=== PATIENT | female | born 1955 | race Caucasian/White ===

== ENCOUNTER → 2016-11-27 | Outpatient (CLI) | payer OTHER ==
[2016-11-27 12:36] LABS: ALT 55 U/L (9-52); AST 53 U/L (14-36); Cholesterol 259 mg/dL (<200); Triglycerides 91 mg/dL (<150)
[2016-11-27 12:50] LABS: HDL Cholesterol 145 mg/dL (40-60)
== END | disposition home or self-care (01) ==
LOC: LABWHC1 10:44
PROVIDERS: ATTEND Internal Medicine Interventional Cardiology
DX: E78.2 Mixed hyperlipidemia (principal)
CPT/HCPCS: 36415; 80061; 84450; 84460

== ENCOUNTER → 2017-02-15 | Outpatient (CLI) | payer OTHER ==
[2017-02-15 13:44] LABS: Basophils % (A) 1 %; CH 33.2; CHCM 33.1; Eosinophils # (A) 0.2 k/uL (0-0.7); Eosinophils % (A) 2 %; HCT 42.2 % (34.0-46.0); HDW 2.15; HGB 14.3 gm/dL (11.4-16.0); Luc # (Auto) 0.17; Luc % (Auto) 3; Lymphocytes # (A) 1.6 k/uL (1.0-4.8); Lymphocytes % (A) 25 %; MCH 34.2 pg (25.0-35.0); MCHC 33.9 g/dL (31.0-37.0); MCV 100.8 fL (80.0-100.0); Mean Platelet Volume 7.2; Monocytes # (A) 0.4 k/uL (0-1.0); Monocytes % (A) 6 %; Neutrophils % (A) 63 %; RBC 4.18 m/uL (3.80-5.40); RDW 12.6 % (11.5-15.5); WBC 6.3 k/uL (3.8-10.6); WBC (Perox) 6.07
[2017-02-15 13:51] LABS: ALT 53 U/L (9-52); AST 56 U/L (14-36); Alkaline Phosphatase 69 U/L (38-126); Anion Gap 11 mmol/L; Blood Urea Nitrogen 12 mg/dL (7-17); Calcium 10.8 mg/dL (8.4-10.2); Carbon Dioxide 28 mmol/L (22-30); Chloride 102 mmol/L (98-107); Glucose 102 mg/dL (74-99); Non-African American GFR(MDRD) >60 (>60 ml/min/1.73 sqM); Potassium 4.7 mmol/L (3.5-5.1); Sodium 141 mmol/L (137-145); Total Bilirubin 0.9 mg/dL (0.2-1.3); Total Protein 8.2 g/dL (6.3-8.2)
[2017-02-15 14:39] LABS: Hepatitis C Virus IgG Ab Negative (Negative); Hepatitis C Virus IgG Index 0.02
== END | disposition home or self-care (01) ==
LOC: LABWHC1 12:56
PROVIDERS: ATTEND Family Medicine
DX: Z00.00 Encounter for general adult medical examination without abnormal findings (principal); I26.99 Other pulmonary embolism without acute cor pulmonale; E72.11 Homocystinuria; R03.0 Elevated blood-pressure reading, without diagnosis of hypertension; R74.8 Abnormal levels of other serum enzymes
CPT/HCPCS: 36415; 80053; 83090; 85025; 86803

== ENCOUNTER → 2017-12-07 | Outpatient (CLI) | payer OTHER ==
[2017-12-07 11:19] LABS: ALT 54 U/L (9-52); AST 59 U/L (14-36); Albumin 4.7 g/dL (3.5-5.0); Alkaline Phosphatase 60 U/L (38-126); Anion Gap 15 mmol/L; Blood Urea Nitrogen 13 mg/dL (7-17); Calcium 10.2 mg/dL (8.4-10.2); Carbon Dioxide 28 mmol/L (22-30); Chloride 98 mmol/L (98-107); Cholesterol 227 mg/dL (<200); Glucose 91 mg/dL (74-99); Potassium 5.2 mmol/L (3.5-5.1); Sodium 141 mmol/L (137-145); Total Bilirubin 0.7 mg/dL (0.2-1.3); Total Protein 7.6 g/dL (6.3-8.2); Triglycerides 50 mg/dL (<150)
[2017-12-07 11:26] LABS: LDL Cholesterol,Calculated 91 mg/dL (0-99)
[2017-12-07 11:39] LABS: HDL Cholesterol 126 mg/dL (40-60)
== END | disposition home or self-care (01) ==
LOC: LABWHC1 09:59
PROVIDERS: ATTEND Internal Medicine Interventional Cardiology
DX: E78.2 Mixed hyperlipidemia (principal)
CPT/HCPCS: 36415; 80053; 80061

== ENCOUNTER 2018-02-05 18:07 | Emergency (ER) | payer OTHER ==
[2018-02-05 18:31] VITALS: BP 155/77; PULSE 85; RESP 18; TEMP 98.2
[2018-02-05] MEDS ORDERED: predniSONE 50 MG TAB PO STA (19:30)
[2018-02-05] MEDS ORDERED: CEPHALEXIN 500MG STARTER PACK 4 CAP BTL PO STA (19:30)
--- NOTE | 2018-02-05 19:30 | ED ---
Skin/Abscess/FB HPI - General Chief complaint: Skin/Abscess/Foreign Body Stated complaint: Bug Bite Time Seen by Provider: 02/05/18 18:51 Source: patient, RN notes reviewed, old records reviewed Mode of arrival: ambulatory Limitations: no limitations - History of Present Illness Initial comments: Patient's a 62-year-old female chief complaint of right hand pain and swelling. She reports that yesterday evening she sitting outside and believes that she got bit by some type of bug. She reports that over the past day she's had increased swelling. She's been taking Benadryl and apply ice over the hand. She denies any redness or streaking up the arm. She reports that she is no pain with range of motion but said the stretching of her skin. No falls or trauma to the hand. Denies any other symptoms at this time. She does report she has other bug bites on her legs that those are not swollen as bad as this. - Related Data Home Medications Medication Instructions Recorded Confirmed EPINEPHrine (Auto Inject) [Epipen] 1 each SQ DIRECTED PRN 01/03/16 02/05/18 Folic Acid 1 mg PO HS 01/03/16 02/05/18 Rivaroxaban [Xarelto] 20 mg PO HS 01/03/16 02/05/18 Rosuvastatin [Crestor] 1 tab PO DAILY 01/03/16 02/05/18 Previous Rx's Medication Instructions Recorded Acetaminophen-Codeine 300-30mg 15 tab PO Q6H PRN 3 Days tablet 01/03/16 [Tylenol #3] Cephalexin [Keflex] 500 mg PO Q8HR #21 cap 02/05/18 predniSONE 10 mg PO DAILY #15 tab 02/05/18 Allergies Allergy/AdvReac Type Severity Reaction Status Date / Time amlodipine besylate Allergy Swelling Verified 02/05/18 18:29 [From [facility]] clindamycin Allergy Unknown Verified 02/05/18 18:29 Childhood venom-honey bee Allergy Anaphylaxis Verified 02/05/18 18:29 [bee venom (honey bee)] Review of Systems ROS Statement: Those systems with pertinent positive or pertinent negative responses have been documented in the HPI. ROS Other: All systems not noted in ROS Statement are negative. Past Medical History Past Medical History: Chest Pain / Angina, Heart Failure, Hyperlipidemia, Hypertension, Pulmonary Embolus (PE) History of Any Multi-Drug Resistant Organisms: None Reported Past Surgical History: No Surgical Hx Reported Past Psychological History: No Psychological Hx Reported Smoking Status: Former smoker Past Alcohol Use History: Daily Past Drug Use History: None Reported General Exam - General Exam Comments Initial Comments: 62-year-old female. Alert and oriented. No acute distress. Limitations: no limitations General appearance: alert, in no apparent distress Head exam: Present: atraumatic, normocephalic, normal inspection Eye exam: Present: normal appearance, PERRL, EOMI. Absent: scleral icterus, conjunctival injection, periorbital swelling ENT exam: Present: normal exam, mucous membranes moist Neck exam: Present: normal inspection. Absent: tenderness, meningismus, lymphadenopathy Respiratory exam: Present: normal lung sounds bilaterally. Absent: respiratory distress, wheezes, rales, rhonchi, stridor Cardiovascular Exam: Present: regular rate GI/Abdominal exam: Present: soft, normal bowel sounds. Absent: distended, tenderness, guarding, rebound, rigid Extremities exam: Present: normal inspection, full ROM, normal capillary refill. Absent: tenderness, pedal edema, joint swelling, calf tenderness Right Elbow exam: Present: normal inspection, full ROM Forearm Wrist exam: Present: normal inspection, full ROM Hand Wrist exam: Present: full ROM, tenderness, swelling (She has some swelling in 3 areas of bug bites over the knuckles. Some erythema noted.). Absent: normal inspection Neuro motor exam: Present: wrist extension intact, thumb opposition intact, thumb IP flexion intact, thumb adduction intact, fingers 2-5 abduction intact Vascular: Present: normal capillary refill Back exam: Present: normal inspection Neurological exam: Present: alert, oriented X3, CN II-XII intact Psychiatric exam: Present: normal affect, normal mood Skin exam: Present: warm, dry, intact, normal color. Absent: rash Course Vital Signs 02/05/18 18:29 Temperature 98.2 F Pulse Rate 85 Respiratory 18 Rate Blood Pressure 155/77 O2 Sat by Pulse 98 Oximetry Medical Decision Making - Medical Decision Making 62-year-old female presents with a swelling and itching to the right hand. She was bit by some type of insect yesterday evening. She has some bites on her legs as well. This time she does have some mild erythema and swelling over the dorsum of her hand. No rings. She is full range of motion of fingers. X-ray of the hand was reviewed and unremarkable. At this time I'll treat the Patient for ALLERGIC reaction put the Patient on steroids and also will cover for any developing cellulitis with Keflex. I discussed appropriate follow-up with primary care provider and return parameters were discussed. Disposition Clinical Impression: Allergic reaction to insect bite, Swelling of right hand Disposition: HOME SELF-CARE Condition: Good Instructions: General Allergic Reaction (ED) Additional Instructions: Patient advised to continue Benadryl and ice packs over the hand. Take the steroids and antibiotics as prescribed. If The area of redness or swelling worsens return to emergency department. Follow up with PCP in the next 1-2 days. Prescriptions: Cephalexin [Keflex] 500 mg PO Q8HR #21 cap predniSONE 10 mg PO DAILY #15 tab Is patient prescribed a controlled substance at d/c from ED?: No When asked, does pt state using other controlled substances?: No If prescribed controlled substance>3 days was MAPS reviewed?: No If opioid is for acute pain is fill amount 7 days or less?: No If Rx opioid, was Start Talking consent form obtained?: No Referrals: Ann Marie Barajas MD [Primary Care Provider] - 1-2 days Time of Disposition: 19:31
--- NOTE | 2018-02-05 19:42 | XR ---
Right hand HISTORY: Pain and swelling, insect bite 3 views of the right hand Soft tissue swelling is noted. Arthropathy changes are present. Bone mineralization, joint spaces and alignment are maintained. No periostitis to suggest osteomyelitis. IMPRESSION: Soft tissue swelling. Arthropathy.
== END 2018-02-05 20:06 | disposition home or self-care (01) ==
LOC: EC 18:07
DX: T78.49XA Other allergy, initial encounter (principal); M79.89 Other specified soft tissue disorders; S60.561A Insect bite (nonvenomous) of right hand, initial encounter; S80.861A Insect bite (nonvenomous), right lower leg, initial encounter; S80.862A Insect bite (nonvenomous), left lower leg, initial encounter; E78.5 Hyperlipidemia, unspecified; Z86.711 Personal history of pulmonary embolism; Z87.891 Personal history of nicotine dependence; Z79.01 Long term (current) use of anticoagulants; Z79.899 Other long term (current) drug therapy; Z88.8 Allergy status to other drugs, medicaments and biological substances; Z88.1 Allergy status to other antibiotic agents; Z91.030 Bee allergy status; W57.XXXA Bitten or stung by nonvenomous insect and other nonvenomous arthropods, initial encounter
CPT/HCPCS: 73130; 99283; J7512

== ENCOUNTER → 2018-04-20 | Outpatient (CLI) | payer OTHER ==
[2018-04-20 15:01] LABS: Basophils % (A) 1 %; Eosinophils # (A) 0.1 k/uL (0-0.7); Eosinophils % (A) 2 %; HCT 43.8 % (34.0-46.0); Lymphocytes # (A) 1.8 k/uL (1.0-4.8); Lymphocytes % (A) 25 %; MCHC 32.1 g/dL (31.0-37.0); MCV 99.8 fL (80.0-100.0); Mean Platelet Volume 7.4; Monocytes # (A) 0.4 k/uL (0-1.0); Monocytes % (A) 5 %; Neutrophils # (A) 4.7 k/uL (1.3-7.7); Neutrophils % (A) 66 %; Platelet Count 243 k/uL (150-450); RBC 4.39 m/uL (3.80-5.40); RDW 12.6 % (11.5-15.5); WBC 7.2 k/uL (3.8-10.6)
[2018-04-20 15:20] LABS: ALT 73 U/L (9-52); AST 76 U/L (14-36); Albumin 4.9 g/dL (3.5-5.0); Alkaline Phosphatase 65 U/L (38-126); Anion Gap 13 mmol/L; Blood Urea Nitrogen 15 mg/dL (7-17); Calcium 10.5 mg/dL (8.4-10.2); Carbon Dioxide 28 mmol/L (22-30); Chloride 100 mmol/L (98-107); Glucose 89 mg/dL (74-99); Sodium 141 mmol/L (137-145); Total Bilirubin 0.8 mg/dL (0.2-1.3); Total Protein 8.3 g/dL (6.3-8.2)
[2018-04-20 15:34] LABS: T4, Free (Free Thyroxine) 1.01 ng/dL (0.78-2.19)
[2018-04-20 22:23] LABS: Erythrocyte Sedimentation Rate 2 mm/hr (0-20)
[2018-04-21 02:31] LABS: Hemoglobin A1C 5.6 % (4.0-6.0)
== END | disposition home or self-care (01) ==
LOC: LABWHC1 14:07
PROVIDERS: ATTEND Family Medicine
DX: E72.11 Homocystinuria (principal); E05.90 Thyrotoxicosis, unspecified without thyrotoxic crisis or storm; R20.2 Paresthesia of skin; G62.9 Polyneuropathy, unspecified
CPT/HCPCS: 36415; 80053; 82607; 83036; 83090; 83540; 83655; 84439; 84443; 85025; 85652

== ENCOUNTER → 2018-05-25 | Outpatient (CLI) | payer OTHER ==
--- NOTE | 2018-05-25 15:24 | US ---
EXAMINATION TYPE: US thyroid st tissue head/neck DATE OF EXAM: 05/25/2018 COMPARISON: US 2012 CLINICAL HISTORY: E04.1 THYROID NODULE. Follow up thyroid nodules, difficulty swallowing GLAND SIZE: Right Lobe: 4.8 x 1.0 x 1.9 cm Overall Parenchyma: homogenous Left Lobe: 4.9 x 1.2 x 1.4 cm Overall Parenchyma: heterogeneous Isthmus Thickness: 0.3 cm NODULES RIGHT: # of nodules measured on right: 4 1. 0.6 X 0.5 x 0.6 cm hypoechoic cystic nodule at the upper pole with well-defined margins. This no dule is wider than tall and shows no intranodular vascularity. Prior size: 0.9 x 0.5 x 0.8 cm 2. 0.6 X 0.6 x 0.6 cm hypoechoic cystic nodule at the mid pole with well-defined margins. This nodul e is wider than tall and shows no intranodular vascularity. Prior size: 1.0 x 0.5 x 0.9 cm 3. 0.7 X 0.4 x 0.4 cm hypoechoic cystic nodule at the mid pole with well-defined margins. This nodul e is wider than tall and shows no intranodular vascularity. Prior size: no previous 4. 0.7 X 0.4 x 0.6 cm hypoechoic cystic nodule at the lower pole with well-defined margins. This nod ule is wider than tall and shows no intranodular vascularity. Prior size: no previous LEFT: # of nodules measured on left: 0 ISTHMUS: # of nodules measured in the isthmus: 0 Bilateral neck scanned, no evidence of lymphadenopathy. Normal-sized thyroid with multiple small nodules is redemonstrated. A few right-sided cystic subcenti meter nodules are not clearly seen on prior study. IMPRESSION: Multinodular right-sided thyroid without new worrisome greater than 1 cm solid or cystic nodule.
== END | disposition home or self-care (01) ==
LOC: RADUSWWP 14:16
PROVIDERS: ATTEND Family Medicine
DX: E04.2 Nontoxic multinodular goiter (principal)
CPT/HCPCS: 76536

== ENCOUNTER → 2018-06-21 | Outpatient (CLI) | payer OTHER ==
[2018-06-21 16:55] LABS: LDL Cholesterol,Calculated 84.8 mg/dL (0.0-131.0); VLDL Calculation 13.2 mg/dL (5.00-40.00)
== END | disposition home or self-care (01) ==
LOC: LABWHC1 11:01
PROVIDERS: ATTEND Internal Medicine Interventional Cardiology
DX: E78.2 Mixed hyperlipidemia (principal)
CPT/HCPCS: 36415; 80061; 84450; 84460

== ENCOUNTER → 2018-07-14 | Outpatient (CLI) | payer OTHER ==
--- NOTE | 2018-07-15 09:00 | MM ---
Reason for exam: screening (asymptomatic). Last mammogram was performed 1 year ago. History: Patient is postmenopausal and is nulliparous. 2 cyst aspirations of the left breast. Took hormonal contraceptives for 18 years. Physical Findings: A clinical breast exam by your physician is recommended on an annual basis and results should be correlated with mammographic findings. MG 3D Screening Mammo W/Cad Bilateral CC and MLO view(s) were taken. Prior study comparison: July 13, 2017, bilateral MG 3d screening mammo w/cad. June 26, 2016, left breast MG work up mamm w CAD LT. The breast tissue is heterogeneously dense. This may lower the sensitivity of mammography. Focal asymmetry 12 o'clock anterior right breast appears more defined. ASSESSMENT: Incomplete: need additional imaging evaluation, BI-RAD 0 RECOMMENDATION: Special view mammogram and ultrasound of the right breast. [facility] will attempt to contact patient to return for supplemental views and ultrasound.
== END | disposition home or self-care (01) ==
LOC: RADMAMWWP 11:11
PROVIDERS: ATTEND Family Medicine
DX: Z12.31 Encounter for screening mammogram for malignant neoplasm of breast (principal)
CPT/HCPCS: 77063; 77067

== ENCOUNTER 2018-07-19 12:21 | Observation (INO) | payer OTHER ==
--- NOTE | 2018-07-19 12:45 | ED ---
General Adult HPI - General Chief complaint: Chest Pain Stated complaint: Back/chest pain Time Seen by Provider: 07/19/18 12:25 Source: patient, RN notes reviewed Mode of arrival: ambulatory Limitations: no limitations - History of Present Illness Initial comments: This is a 63-year-old female who presents to the emergency department with past medical history significant for pulmonary embolism and she is currently on Xarelto. Patient comes in today because she has had an 10-11 day history of back pain between her shoulder blades. Patient states the pain does feel somewhat like her PE in the past. Patient states over the last day and a half she's had some anterior chest heaviness and she states that this something new. Patient also states she was mild shortness of breath. Patient denies any fever chills per patient denies any lightheadedness dizziness or near syncopal episode. Patient denies any palpitations per patient denies abdominal pain patient denies nausea vomiting diarrhea. Patient denies any leg swelling or calf tenderness. - Related Data Home Medications Medication Instructions Recorded Confirmed EPINEPHrine (Auto Inject) [Epipen] 1 injection SQ ONCE PRN 01/03/16 07/19/18 Folic Acid 1 mg PO HS 01/03/16 07/19/18 Rivaroxaban [Xarelto] 20 mg PO W/SUPPER 01/03/16 07/19/18 Rosuvastatin [Crestor] 10 mg PO DAILY 01/03/16 07/19/18 Acetaminophen Tab [Tylenol Tab] 1,000 mg PO Q6HR PRN 07/19/18 07/19/18 Cartilage/Collagen/Bor/Hyalur 1 tab PO DAILY 07/19/18 07/19/18 [Move Free Ultra Tablet] Ubidecarenone [Co Q-10] 100 mg PO DAILY 07/19/18 07/19/18 Vitamin C/Biotin [Hair, Skin and 1 tab PO DAILY 07/19/18 07/19/18 Nails] Vits A,C,E/Lutein/Minerals 1 tab PO DAILY 07/19/18 07/19/18 [Ocuvite with Lutein Tablet] Allergies Allergy/AdvReac Type Severity Reaction Status Date / Time amlodipine besylate Allergy Swelling Verified 07/19/18 13:41 [From [facility]] clindamycin Allergy Unknown Verified 07/19/18 13:41 Childhood venom-honey bee Allergy Anaphylaxis Verified 07/19/18 13:41 [bee venom (honey bee)] Review of Systems ROS Statement: Those systems with pertinent positive or pertinent negative responses have been documented in the HPI. ROS Other: All systems not noted in ROS Statement are negative. Past Medical History Past Medical History: Chest Pain / Angina, Heart Failure, Hyperlipidemia, Hypertension, Pulmonary Embolus (PE) History of Any Multi-Drug Resistant Organisms: None Reported Past Surgical History: No Surgical Hx Reported Past Psychological History: No Psychological Hx Reported Smoking Status: Former smoker Past Alcohol Use History: Daily Past Drug Use History: None Reported General Exam - General Exam Comments Initial Comments: GENERAL: Patient is well-developed and well-nourished. Patient is nontoxic and well- hydrated and is in mild distress. ENT: Neck is soft and supple. No significant lymphadenopathy is noted. Oropharynx is clear. Moist mucous membranes. Neck has full range of motion without eliciting any pain. EYES: The sclera were anicteric and conjunctiva were pink and moist. Extraocular movements were intact and pupils were equal round and reactive to light. Eyelids were unremarkable. PULMONARY: Unlabored respirations. Good breath sounds bilaterally. No audible rales rhonchi or wheezing was noted. CARDIOVASCULAR: There is a regular rate and rhythm without any murmurs gallops or rubs. ABDOMEN: Soft and nontender with normal bowel sounds. No palpable organomegaly was noted. There is no palpable pulsatile mass. SKIN: Skin is clear with no lesions or rashes and otherwise unremarkable. NEUROLOGIC: Patient is alert and oriented x3. Cranial nerves II through XII are grossly intact. Motor and sensory are also intact. Normal speech, volume and content. Symmetrical smile. MUSCULOSKELETAL: Normal extremities with adequate strength and full range of motion. No lower extremity swelling or edema. No calf tenderness. LYMPHATICS: No significant lymphadenopathy is noted PSYCHIATRIC: Normal psychiatric evaluation. Limitations: no limitations Course Vital Signs 07/19/18 07/19/18 07/19/18 12:25 13:00 13:30 Temperature Pulse Rate 95 80 77 Respiratory 16 21 16 Rate Blood Pressure 144/87 151/95 145/94 O2 Sat by Pulse 98 96 98 Oximetry 07/19/18 14:16 Temperature 98.4 F Pulse Rate Respiratory Rate Blood Pressure O2 Sat by Pulse Oximetry Medical Decision Making - Medical Decision Making EKG shows normal sinus rhythm at 90 bpm SD interval is 162 QRS 70 QT interval 346 QTC is 441. Patient's EKG shows no ST segment elevation or depression or T wave abnormalities are noted. CT shows no PE or aortic aneurysm Patient's chest pain remained yesterday her back pain. Patient was not placed on heparin because she was already on Xarelto. I spoke with Dr. Onofre he agreed to admit the patient admitted the patient continued aspirin and Nitropaste. - Lab Data Result diagrams: 07/19/18 12:49 07/19/18 12:49 Lab Results 07/19/18 07/19/18 07/19/18 Range/Units 12:49 12:49 12:49 WBC 5.2 (3.8-10.6) k/uL RBC 4.38 (3.80-5.40) m/uL Hgb 14.1 (11.4-16.0) gm/dL Hct 42.7 (34.0-46.0) % MCV 97.4 (80.0-100.0) fL MCH 32.3 (25.0-35.0) pg MCHC 33.1 (31.0-37.0) g/dL RDW 12.8 (11.5-15.5) % Plt Count 254 (150-450) k/uL Neutrophils % 63 % Lymphocytes % 25 % Monocytes % 6 % Eosinophils % 3 % Basophils % 0 % Neutrophils # 3.3 (1.3-7.7) k/uL Lymphocytes # 1.3 (1.0-4.8) k/uL Monocytes # 0.3 (0-1.0) k/uL Eosinophils # 0.2 (0-0.7) k/uL Basophils # 0.0 (0-0.2) k/uL PT (9.0-12.0) sec INR (<1.2) APTT (22.0-30.0) sec D-Dimer (<0.60) mg/L FEU Sodium 139 (137-145) mmol/L Potassium 4.1 (3.5-5.1) mmol/L Chloride 102 (98-107) mmol/L Carbon Dioxide 23 (22-30) mmol/L Anion Gap 14 mmol/L BUN 13 (7-17) mg/dL Creatinine 0.57 (0.52-1.04) mg/dL Est GFR (CKD-EPI)AfAm >90 (>60 ml/min/1.73 sqM) Est GFR (CKD-EPI)NonAf >90 (>60 ml/min/1.73 sqM) Glucose 117 H (74-99) mg/dL Calcium 10.7 H (8.4-10.2) mg/dL Magnesium 1.9 (1.6-2.3) mg/dL Total Bilirubin 0.7 (0.2-1.3) mg/dL AST 81 H (14-36) U/L ALT 80 H (9-52) U/L Alkaline Phosphatase 63 (38-126) U/L Total Creatine Kinase 66 (30-135) U/L CK-MB (CK-2) 0.6 (0.0-2.4) ng/mL CK-MB (CK-2) Rel Index 0.9 Troponin I <0.012 (0.000-0.034) ng/mL NT-Pro-B Natriuret Pep pg/mL Total Protein 8.6 H (6.3-8.2) g/dL Albumin 5.3 H (3.5-5.0) g/dL 07/19/18 07/19/18 Range/Units 12:49 12:49 WBC (3.8-10.6) k/uL RBC (3.80-5.40) m/uL Hgb (11.4-16.0) gm/dL Hct (34.0-46.0) % MCV (80.0-100.0) fL MCH (25.0-35.0) pg MCHC (31.0-37.0) g/dL RDW (11.5-15.5) % Plt Count (150-450) k/uL Neutrophils % % Lymphocytes % % Monocytes % % Eosinophils % % Basophils % % Neutrophils # (1.3-7.7) k/uL Lymphocytes # (1.0-4.8) k/uL Monocytes # (0-1.0) k/uL Eosinophils # (0-0.7) k/uL Basophils # (0-0.2) k/uL PT 11.4 (9.0-12.0) sec INR 1.1 (<1.2) APTT 26.0 (22.0-30.0) sec D-Dimer 0.23 (<0.60) mg/L FEU Sodium (137-145) mmol/L Potassium (3.5-5.1) mmol/L Chloride (98-107) mmol/L Carbon Dioxide (22-30) mmol/L Anion Gap mmol/L BUN (7-17) mg/dL Creatinine (0.52-1.04) mg/dL Est GFR (CKD-EPI)AfAm (>60 ml/min/1.73 sqM) Est GFR (CKD-EPI)NonAf (>60 ml/min/1.73 sqM) Glucose (74-99) mg/dL Calcium (8.4-10.2) mg/dL Magnesium (1.6-2.3) mg/dL Total Bilirubin (0.2-1.3) mg/dL AST (14-36) U/L ALT (9-52) U/L Alkaline Phosphatase (38-126) U/L Total Creatine Kinase (30-135) U/L CK-MB (CK-2) (0.0-2.4) ng/mL CK-MB (CK-2) Rel Index Troponin I (0.000-0.034) ng/mL NT-Pro-B Natriuret Pep 71 pg/mL Total Protein (6.3-8.2) g/dL Albumin (3.5-5.0) g/dL Disposition Clinical Impression: Unstable angina pectoris Disposition: ADMITTED IP TO THIS HOSP Referrals: Ann Marie Barajas MD [Primary Care Provider] - 1-2 days Time of Disposition: 14:35
[2018-07-19 13:13] LABS: Basophils % (A) 0 %; Eosinophils # (A) 0.2 k/uL (0-0.7); Eosinophils % (A) 3 %; HCT 42.7 % (34.0-46.0); HGB 14.1 gm/dL (11.4-16.0); Lymphocytes # (A) 1.3 k/uL (1.0-4.8); Lymphocytes % (A) 25 %; MCH 32.3 pg (25.0-35.0); MCHC 33.1 g/dL (31.0-37.0); MCV 97.4 fL (80.0-100.0); Monocytes # (A) 0.3 k/uL (0-1.0); Monocytes % (A) 6 %; Neutrophils # (A) 3.3 k/uL (1.3-7.7); Neutrophils % (A) 63 %; Platelet Count 254 k/uL (150-450); RBC 4.38 m/uL (3.80-5.40); RDW 12.8 % (11.5-15.5); WBC 5.2 k/uL (3.8-10.6)
[2018-07-19 13:27] LABS: ALT 80 U/L (9-52); AST 81 U/L (14-36); Albumin 5.3 g/dL (3.5-5.0); Alkaline Phosphatase 63 U/L (38-126); Anion Gap 14 mmol/L; Blood Urea Nitrogen 13 mg/dL (7-17); Calcium 10.7 mg/dL (8.4-10.2); Carbon Dioxide 23 mmol/L (22-30); Chloride 102 mmol/L (98-107); Glucose 117 mg/dL (74-99); Magnesium 1.9 mg/dL (1.6-2.3); Potassium 4.1 mmol/L (3.5-5.1); Sodium 139 mmol/L (137-145); Total Bilirubin 0.7 mg/dL (0.2-1.3); Total Protein 8.6 g/dL (6.3-8.2)
[2018-07-19 13:28] LABS: D-Dimer 0.23 mg/L FEU (<0.60); INR 1.1 (<1.2); Prothrombin Time 11.4 sec (9.0-12.0)
[2018-07-19 13:33] LABS: Creatine Kinase 66 U/L (30-135)
--- NOTE | 2018-07-19 13:43 | CT ---
CT CHEST FOR PULMONARY EMBOLISM. EXAMINATION TYPE: CT chest angio for PE DATE OF EXAM: 07/19/2018 INDICATION: Chest pain with a history of PE CT DLP: 192.3 mGycm, Automated exposure control for dose reduction was used. CONTRAST: Patient injected with 100 ml mL of Isovue 370. COMPARISON: 07/18/2015 TECHNIQUE: CT of the chest is performed on a spiral scan at 2 mm thick sections. Study is performed with intravenous contrast timed for evaluation for pulmonary embolism. This will limit additional po rtions of the evaluation. 3-D MIP images reconstructed by the technologist are reviewed on the compu ter in the coronal and sagittal planes. FINDINGS: No persistent filling defects are evident to suggest an acute pulmonary embolism. No mediastinal or hilar adenopathy enlarged by CT criteria is evident. The ascending aorta diameter at the level of the main pulmonary artery is 2.8 cm. The main pulmonary artery diameter at the bifur cation is 2.4 cm. Lung windows are clear. Limited CT sections are obtained through the upper abdomen. There is mild fatty infiltration to the l iver. IMPRESSIONS: 1. No acute pulmonary embolism.
[2018-07-19 13:46] LABS: Creatine Kinase MB 0.6 ng/mL (0.0-2.4); Troponin I <0.012 ng/mL (0.000-0.034)
[2018-07-19] MEDS ORDERED: NITROGLYCERIN SL TABS 0.4 MG TAB SUBLINGUAL PRN (14:36)
[2018-07-19] MEDS ORDERED: ASPIRIN 81 MG PO STA (15:19)
[2018-07-19] MEDS ORDERED: METOPROLOL TARTRATE 50 MG TAB PO STA (15:27)
--- NOTE | 2018-07-19 15:36 | P.HPIM ---
History of Present Illness H&P Date: 07/19/18 Chief Complaint: Chest and back pain This is a 63-year-old female with a past medical history of PE, Hypertension, pulmonary embolism and she is currently on anticoagulation with Xarelto that presents to the ED via private vehicle with chief complaint of chest pain and back pain. Patient comes in today because she has had an 10-11 day history of back pain between her shoulder blades starting from her neck. Patient has had this type of pain before but was told by her PCP Dr. Barajas that it was likely arthritis, the patient at this time is a little bit different with regards to duration of her discomfort.. Patient states the pain does feel somewhat like her PE in the past. Patient states over the last day and a half she's had some mild fleeting anterior chest heaviness without any radiation and she states that this something new. Patient also states she was mild shortness of breath. Patient denies any fever chills per patient denies any lightheadedness dizziness or near syncopal episode. Patient denies any palpitations per patient denies abdominal pain patient denies nausea vomiting diarrhea. Patient denies any leg swelling or calf tenderness. In the ER the patient had complaints of workup including a CTA of the chest that was negative for PE, NT proBNP was 70 and troponin was less than 0.012. EKG indicated sinus mechanism . She was recommended for admission to rule out ACS Review of Systems Pertinent positives per HPI all other review of systems otherwise negative Past Medical History Past Medical History: Chest Pain / Angina, Heart Failure, Hyperlipidemia, Hypertension, Pulmonary Embolus (PE) History of Any Multi-Drug Resistant Organisms: None Reported Past Surgical History: No Surgical Hx Reported Past Psychological History: No Psychological Hx Reported Smoking Status: Former smoker Past Alcohol Use History: Daily Past Drug Use History: None Reported Medications and Allergies Home Medications Medication Instructions Recorded Confirmed Type EPINEPHrine (Auto Inject) [Epipen] 1 injection SQ ONCE PRN 01/03/16 07/19/18 History Folic Acid 1 mg PO HS 01/03/16 07/19/18 History Rivaroxaban [Xarelto] 20 mg PO W/SUPPER 01/03/16 07/19/18 History Rosuvastatin [Crestor] 10 mg PO DAILY 01/03/16 07/19/18 History Acetaminophen Tab [Tylenol Tab] 1,000 mg PO Q6HR PRN 07/19/18 07/19/18 History Cartilage/Collagen/Bor/Hyalur 1 tab PO DAILY 07/19/18 07/19/18 History [Move Free Ultra Tablet] Ubidecarenone [Co Q-10] 100 mg PO DAILY 07/19/18 07/19/18 History Vitamin C/Biotin [Hair, Skin and 1 tab PO DAILY 07/19/18 07/19/18 History Nails] Vits A,C,E/Lutein/Minerals 1 tab PO DAILY 07/19/18 07/19/18 History [Ocuvite with Lutein Tablet] Allergies Allergy/AdvReac Type Severity Reaction Status Date / Time amlodipine besylate Allergy Swelling Verified 07/19/18 13:41 [From [facility]] clindamycin Allergy Unknown Verified 07/19/18 13:41 Childhood venom-honey bee Allergy Anaphylaxis Verified 07/19/18 13:41 [bee venom (honey bee)] Physical Exam Vitals: Vital Signs Temp Pulse Resp BP Pulse Ox 07/19/18 15:11 98.3 F 84 18 152/96 99 07/19/18 14:16 98.4 F 07/19/18 13:30 77 16 145/94 98 07/19/18 13:00 80 21 151/95 96 07/19/18 12:25 95 16 144/87 98 Intake and Output 07/19/18 07/19/18 07/19/18 06:59 14:59 22:59 Other: Weight 67.132 kg Constitutional: No acute distress, conversant, pleasant Eyes: Anicteric sclerae, moist conjunctiva, no lid-lag, PERRLA ENMT: NC/AT,Oropharynx clear, no erythema, exudates Neck:Supple, FROM, no masses, or JVD, No carotid bruits; No thyromegaly Lungs: Clear to auscultation, Clear to percussion, Normal respiratory effort, no accessory muscle use Cardiovascular: Heart regular in rate and rhythm, No murmurs, gallops, or rubs no peripheral edema Abdominal: Soft Nontender, nom distended, no guarding, no rebound or rigidity, Normoactive bowel sounds No hepatomegaly, No splenomegaly, No palpable mass No abdominal wall hernia noted Skin: Normal temperature, tone, texture, turgor, No induration No subcutaneous nodules, No rash, lesions, No ulcers Extremities:No digital cyanosis No clubbing, Pedal pulses intact and symmetrical Radial pulses intact and symmetrical Normal gait and station, No calf tenderness Psychiatric: Alert and oriented to person, place and time, Appropriate affect Intact judgement Neuro: Muscles Strength 5/5 in all 4 extremities, Sensation to light touch grossly present throughout, Cranial nerves II-XII grossly intact. No focal sensory deficits Results CBC & Chem 7: 07/19/18 12:49 07/19/18 12:49 Labs: Abnormal Lab Results - Last 24 Hours (Table) 07/19/18 Range/Units 12:49 Glucose 117 H (74-99) mg/dL Calcium 10.7 H (8.4-10.2) mg/dL AST 81 H (14-36) U/L ALT 80 H (9-52) U/L Total Protein 8.6 H (6.3-8.2) g/dL Albumin 5.3 H (3.5-5.0) g/dL Assessment and Plan (1) Atypical chest pain Current Visit: No Status: Acute Code(s): R07.89 - OTHER CHEST PAIN SNOMED Code(s): 818446041 (2) Essential hypertension Current Visit: No Status: Acute Code(s): I10 - ESSENTIAL (PRIMARY) HYPERTENSION SNOMED Code(s): 60341875 (3) Hyperlipidemia Current Visit: No Status: Acute Code(s): E78.5 - HYPERLIPIDEMIA, UNSPECIFIED SNOMED Code(s): 82929357 Plan: Patient observation anticipated less than 2 midnight stay after presenting with atypical chest pain initial EKGs negative for any suggestion of acute ischemia initial cardiac enzymes troponins are negative and less than 0.012. The patient is started on routine ACS protocol and started on aspirin to be given now with daily aspirin, I will continue to sequentially trend troponins. The patient is noted to be hypertensive and started on metoprolol and HCTZ to control her blood pressure, we'll plan to obtain a stress echocardiogram and consult cardiology for further recommendations. Also obtain x-rays of the cervical and thoracic spine. CODE STATUS full code Discussed plan of care with patient and DVT prophylaxis: patient already on anticoagulation
[2018-07-19] MEDS ORDERED: KETOROLAC 30 MG/ML 1 ML VIAL IVP STA (16:19)
--- NOTE | 2018-07-19 17:08 | XR ---
PROCEDURE: XR cervical spine comp - 5V DATE AND TIME: 07/19/2018 4:52 PM CLINICAL INDICATION: PHH; neck and back pain TECHNIQUE: Department protocol, 5 views COMPARISON: None FINDINGS: There is no fracture or malalignment. Multilevel moderate cervical spondylosis, most advanc ed at the C4-5 and C6-7 levels. The soft tissues are unremarkable. IMPRESSION: NO ACUTE PROCESS.
--- NOTE | 2018-07-19 17:58 | XR ---
PROCEDURE: XR thoracic spine complete - 3V DATE AND TIME: 07/19/2018 4:52 PM CLINICAL INDICATION: PHH; neck and back pain TECHNIQUE: Coned AP and lateral views. COMPARISON: None FINDINGS: There is no fracture or malalignment. The soft tissues are unremarkable. IMPRESSION: NO ACUTE PROCESS.
[2018-07-19] MEDS ORDERED: ACETAMINOPHEN TAB 500 MG TAB PO PRN (19:00)
[2018-07-19 19:51] LABS: Creatine Kinase 52 U/L (30-135)
[2018-07-19 20:04] LABS: Creatine Kinase MB 0.4 ng/mL (0.0-2.4); Troponin I <0.012 ng/mL (0.000-0.034)
[2018-07-19] MEDS ORDERED: METOPROLOL TARTRATE 50 MG TAB PO SCH (21:00)
[2018-07-19] MEDS ORDERED: FOLIC ACID 1 MG TAB PO SCH (21:00)
[2018-07-19] MEDS ORDERED: RIVAROXABAN 20 MG TAB PO SCH (21:10)
[2018-07-19] MEDS: CYCLOBENZAPRINE 5 MG TAB PO SCH (21:25)
[2018-07-19] MEDS: NITROGLYCERIN OINT 1 INCH/GM PACKET TOPICAL SCH ×2 (21:28→23:51)
[2018-07-20 00:53] LABS: Creatine Kinase 52 U/L (30-135)
[2018-07-20 01:09] LABS: Creatine Kinase MB 0.3 ng/mL (0.0-2.4); Troponin I <0.012 ng/mL (0.000-0.034)
[2018-07-20 02:37] LABS: Cholesterol 213 mg/dL (<200); Triglycerides 118 mg/dL (<150)
[2018-07-20 02:44] LABS: HDL Cholesterol 125 mg/dL (40-60); LDL Cholesterol,Calculated 64 mg/dL (0-99)
[2018-07-20] MEDS: NITROGLYCERIN OINT 1 INCH/GM PACKET TOPICAL SCH (06:27)
--- NOTE | 2018-07-20 07:38 | CONS ---
CONSULTATION Mrs. Buck is a 63-year-old female who presented with symptoms of upper back discomfort with some tingling in the chest and dyspnea. She has been having those symptoms for the last couple weeks. She had a prior history of pulmonary embolism, has been anticoagulated, had a history of hypertension but no documented history of obstructive coronary artery disease. She is usually active physically and matter of fact she has been walking in the mall last week and had no significant discomfort, but the discomfort occurred after. There is some positional pattern to the discomfort, but yesterday the discomfort was getting worse with some heaviness in the chest and some dyspnea. The patient denies any cough or fever. No wheezing. She denies any peripheral edema. No PND nor orthopnea. Her coronary risk factors are negative for smoking. She stopped about 40 years ago. She has a history of hyperlipidemia. She is nondiabetic. MEDICATIONS: Her medications include Crestor 10 mg daily, Xarelto 20 mg daily, Tylenol, Ocuvite, and coenzyme Q10. REVIEW OF SYSTEMS: RESPIRATORY SYSTEM: She has no recent wheezing or cough. No history of documented obstructive lung disease. GI SYSTEM: No recent GI bleeding. No peptic ulcer disease. SYSTEM: No dysuria or hematuria. NERVOUS SYSTEM: No history of stroke or seizure. PHYSICAL EXAMINATION: Blood pressure 102/70 with the heart rate in the 60s. HEAD: Normocephalic. EYES: Sclerae anicteric. NECK: Good carotid upstroke. No bruit. No jugular venous distention. LUNGS: Clear to auscultation. HEART: Regular rate and rhythm. S1, S2. No S3 with a systolic ejection murmur heard at the base. No diastolic murmur. No rub. ABDOMEN: Soft, nontender. Positive bowel sounds. No organomegaly. EXTREMITIES: No edema. Intact distal pulses. LAB DATA: Lab data revealed troponin less than 0.012 for 3 samples. Cholesterol 213 with an LDL of 64, HDL of 125. Hemoglobin of 14.1. EKG revealed a sinus mechanism with no acute ST-segment changes. The CT scan of the chest revealed no evidence of acute pulmonary embolism. Cervical spine x-ray shows no acute changes. IMPRESSION: 1. Back discomfort, has atypical features for ischemic heart disease, probably musculoskeletal in etiology. 2. History of pulmonary embolism with no evidence of recurrence. 3. Hypertension. 4. Hyperlipidemia. RECOMMENDATION: I will proceed with a stress echocardiogram. If there is no evidence of inducible ischemia then no further cardiac workup will be needed. Thank you for this consult. We will follow with you. SALAS / RASHAWN: [id number] /
[2018-07-20] MEDS ORDERED: NON-FORMULARY DRUG (Ubidecarenone [Co Q-10] 100 MG) PO SCH (09:00)
[2018-07-20] MEDS ORDERED: ASPIRIN 81 MG PO SCH (09:00)
[2018-07-20] MEDS ORDERED: NON-FORMULARY DRUG (Vitamin C/Biotin [Hair, Skin And Nails] 1 TAB) PO SCH (09:00)
[2018-07-20] MEDS ORDERED: METOPROLOL TARTRATE 25 MG TAB PO SCH (09:00)
[2018-07-20] MEDS ORDERED: ATORVASTATIN 20 MG TAB PO SCH (09:00)
[2018-07-20] MEDS ORDERED: ASPIRIN 325 MG TAB PO SCH (09:00)
[2018-07-20 11:27] VITALS: BP 111/78; PULSE 98; RESP 16; TEMP 97.4
[2018-07-20] MEDS: CYCLOBENZAPRINE 5 MG TAB PO SCH (11:39)
[2018-07-20] MEDS: HYDROCHLOROTHIAZIDE 12.5 MG CAP PO SCH ×2 (11:40→11:42)
[2018-07-20] MEDS ORDERED: VIT A,C & E-LUTEIN-MINERALS 1 EACH TAB PO SCH (12:00)
--- NOTE | 2018-07-20 12:42 | ECHOF ---
Referral Reason:cp MEASUREMENTS -------- HEIGHT: 160.0 cm WEIGHT: 66.2 kg BP: 102/70 RVIDd: 2.8 cm (< 3.3) IVSd: 1.0 cm (0.6 - 1.1) LVIDd: 4.0 cm (3.9 - 5.3) LVPWd: 1.1 cm (0.6 - 1.1) IVSs: 1.6 cm LVIDs: 2.5 cm LVPWs: 1.5 cm LA Diam: 3.1 cm (2.7 - 3.8) LAESV Index (A-L): 25.49 ml/m Ao Diam: 2.9 cm (2.0 - 3.7) AV Cusp: 1.7 cm (1.5 - 2.6) EPSS: 0.5 cm MV E Tadeo: 0.47 m/s MV DecT: 257 ms MV A Tadeo: 0.84 m/s MV E/A Ratio: 0.55 RAP: 5.00 mmHg RVSP: 24.78 mmHg MV EF SLOPE: 84.36 mm/s (70 - 150) MV EXCURSION: 1.01 cm (> 18.000) FINDINGS -------- Sinus rhythm. This was a technically good study. The left ventricular size is normal. Left ventricular wall thickness is normal. Overall left vent ricular systolic function is normal with, an EF between 55 - 60 %. The right ventricle is normal in size. Normal LA size by volume 22+/-6 ml/m2. The right atrium is normal in size. The aortic valve is trileaflet and appears structurally normal. Trace amount of aortic regurgitatio n. The mitral valve leaflets are mildly thickened. Mild mitral regurgitation is present. Redundant M V Leaflets. Mild tricuspid regurgitation present. Right ventricular systolic pressure is normal at < 35 mmHg. The right ventricular systolic pressure, as measured by Doppler, is 24.78mmHg. Trace/mild (physiologic) pulmonic regurgitation. The aortic root size is normal. Normal inferior vena cava with normal inspiratory collapse consistent with estimated right atrial pre ssure of 5 mmHg. There is no pericardial effusion. CONCLUSIONS -------- 1. Sinus rhythm. 2. This was a technically good study. 3. The left ventricular size is normal. 4. Left ventricular wall thickness is normal. 5. Overall left ventricular systolic function is normal with, an EF between 55 - 60 %. 6. Normal LA size by volume 22+/-6 ml/m2. 7. The aortic valve is trileaflet and appears structurally normal. 8. Trace amount of aortic regurgitation. 9. The mitral valve leaflets are mildly thickened. 10. Mild mitral regurgitation is present. 11. Redundant MV Leaflets. 12. Mild tricuspid regurgitation present. 13. Right ventricular systolic pressure is normal at < 35 mmHg. 14. Trace/mild (physiologic) pulmonic regurgitation. 15. The aortic root size is normal. 16. Normal inferior vena cava with normal inspiratory collapse consistent with estimated right atrial pressure of 5 mmHg. 17. There is no pericardial effusion. INFECTION CONTROL NURSE: MANINDER Navarro
--- NOTE | 2018-07-20 14:02 | ECHOS ---
STRESS ECHOCARDIOGRAM INDICATIONS: Chest pain. BASELINE HEART RATE: 68 BASELINE BLOOD PRESSURE: 128/72 MAXIMUM HEART RATE: 167 MAXIMUM BLOOD PRESSURE: 178/84 85% MPHR: 133 100% MPHR: 156 METS: 7.1 MAXIMUM STAGE REACHED: 2 TOTAL EXERCISE TIME: 6:00 CLINICAL INFORMATION: Baseline rhythm sinus mechanism, rate 68, normal axis, intervals, normal echocardiogram. Baseline blood pressure 128/72 mmHg. Patient exercised on Gallo protocol for 6 minute reaching peak rate 167 beats per minute which is equal to 100% maximum predicted heart rate. Peak blood pressure 178/84 mmHg. Test was terminated secondary to fatigue. There was no chest pain. Electrocardiographic monitoring revealed no evidence of diagnostic ischemic ST deviation. FINDINGS: Baseline echocardiogram revealed normal wall thickening and motion. At peak exercise, there was normal wall motion augmentation with no hypokinesis or dyskinesis. MMODL / IJN: [id number] /
--- NOTE | 2018-07-20 14:24 | P.DS ---
Providers Date of admission: 07/19/18 14:43 Expected date of discharge: 07/20/18 Attending physician: Shade Cid MD Consults: 07/19/18 14:36 Consult Physician Urgent Consulting Provider: [facility] Consult Reason/Comments: Unstable angina Do you want consulting provider notified?: Yes Primary care physician: Ann Marie Barajas MD - Discharge Diagnosis(es) (1) Atypical chest pain Current Visit: No Status: Acute (2) Essential hypertension Current Visit: No Status: Acute (3) Hyperlipidemia Current Visit: No Status: Acute (4) Back pain Current Visit: Yes Status: Acute (5) Cervical spondylolysis Current Visit: Yes Status: Acute Hospital Course: The patient is a 63-year-old female that presented with atypical chest pain and was placed in observation to rule out ACS. All of her workup was negative including her initial and sequential cardiac enzymes, EKG was consistent with a sinus mechanism with suggestion of ischemia. Subsequent echocardiogram and stress echocardiogram were pretty normal. CTA of the chest was negative for PE. It was discerned that the patient's symptoms as likely muskuloskeletal etiology.x-rays of the cervical and thoracic spine only showed cervical spondylosis. Patient's discomfort was treated with Toradol and Flexeril. She was subsequently discharged home in stable condition and instructed to follow up with her PCP. New prescriptions at discharge Flexeril 5 mg by mouth twice a day when necessary and naproxen 500 mg by mouth twice a day focus exam CV: Regular rate and rhythm, no murmurs rubs or gallops, no edema, PMI nondisplaced Patient Condition at Discharge: Good Plan - Discharge Summary Discharge Rx Participant: Yes New Discharge Prescriptions: New Aspirin 81 mg PO DAILY #30 chew Cyclobenzaprine [Flexeril] 5 mg PO BID #30 tab Metoprolol Tartrate [Lopressor] 25 mg PO BID #60 tab Naproxen 500 mg PO BID #60 tablet Continue Rosuvastatin [Crestor] 10 mg PO DAILY Rivaroxaban [Xarelto] 20 mg PO W/SUPPER Folic Acid 1 mg PO HS EPINEPHrine (Auto Inject) [Epipen] 1 injection SQ ONCE PRN PRN Reason: Allergic Reaction Vits A,C,E/Lutein/Minerals [Ocuvite with Lutein Tablet] 1 tab PO DAILY Vitamin C/Biotin [Hair, Skin and Nails] 1 tab PO DAILY Cartilage/Collagen/Bor/Hyalur [Move Free Ultra Tablet] 1 tab PO DAILY Acetaminophen Tab [Tylenol] 1,000 mg PO Q6HR PRN PRN Reason: Pain Or Fever > 100.5 Ubidecarenone [Co Q-10] 100 mg PO DAILY Discharge Medication List EPINEPHrine (Auto Inject) [Epipen] 1 injection SQ ONCE PRN 01/03/16 [History] Folic Acid 1 mg PO HS 01/03/16 [History] Rivaroxaban [Xarelto] 20 mg PO W/SUPPER 01/03/16 [History] Rosuvastatin [Crestor] 10 mg PO DAILY 01/03/16 [History] Acetaminophen Tab [Tylenol] 1,000 mg PO Q6HR PRN 07/19/18 [History] Cartilage/Collagen/Bor/Hyalur [Move Free Ultra Tablet] 1 tab PO DAILY 07/19/18 [ History] Ubidecarenone [Co Q-10] 100 mg PO DAILY 07/19/18 [History] Vitamin C/Biotin [Hair, Skin and Nails] 1 tab PO DAILY 07/19/18 [History] Vits A,C,E/Lutein/Minerals [Ocuvite with Lutein Tablet] 1 tab PO DAILY 07/19/18 [History] Aspirin 81 mg PO DAILY #30 chew 07/20/18 [Rx] Cyclobenzaprine [Flexeril] 5 mg PO BID #30 tab 07/20/18 [Rx] Metoprolol Tartrate [Lopressor] 25 mg PO BID #60 tab 07/20/18 [Rx] Naproxen 500 mg PO BID #60 tablet 07/20/18 [Rx] Follow up Appointment(s)/Referral(s): Ann Marie Barajas MD [Primary Care Provider] - 1-2 days
[2018-07-20] MEDS ORDERED: RIVAROXABAN 20 MG TAB PO SCH (17:30)
== END 2018-07-20 14:52 | disposition home or self-care (01) ==
LOC: EC 12:21 → 1SOBS 14:43
PROVIDERS: ADMIT Family Medicine; ATTEND Family Medicine
DX: R07.89 Other chest pain (principal); M54.6 Pain in thoracic spine; I11.0 Hypertensive heart disease with heart failure; I50.9 Heart failure, unspecified; M43.02 Spondylolysis, cervical region; M62.838 Other muscle spasm; R20.2 Paresthesia of skin; E78.5 Hyperlipidemia, unspecified; Z87.891 Personal history of nicotine dependence; Z79.01 Long term (current) use of anticoagulants; Z79.899 Other long term (current) drug therapy; Z88.8 Allergy status to other drugs, medicaments and biological substances; Z88.1 Allergy status to other antibiotic agents; Z91.030 Bee allergy status; Z86.711 Personal history of pulmonary embolism
CPT/HCPCS: 96374; 99285; 36415; 93306; 93351; 85379; 83880; 80061; 80053; 82550 ×2; 82553 ×2; 83735; 84484 ×2; 85025; 85610; 85730; 72072; 72050; 71275; G0378 ×2; J1885; Q9967; 93005

== ENCOUNTER → 2018-08-05 | Outpatient (CLI) | payer OTHER ==
--- NOTE | 2018-08-05 14:06 | MM ---
Reason for exam: additional evaluation requested from abnormal screening. Last mammogram was performed 1 month ago. History: Patient is postmenopausal and is nulliparous. 2 cyst aspirations of the left breast. Took hormonal contraceptives for 18 years. Physical Findings: Nurse did not find any significant physical abnormalities on exam. MG 3D Work Up W/Cad RT Spot compression CC and ML view(s) were taken of the right breast. Prior study comparison: July 14, 2018, bilateral MG 3d screening mammo w/cad. July 13, 2017, bilateral MG 3d screening mammo w/cad. The breast tissue is heterogeneously dense. This may lower the sensitivity of mammography. There is no discrete abnormality on compression. Focal asymmetry, new inferior right ML not distinct on tomosynthesis or MLO. These results were verbally communicated with the patient and result sheet given to the patient on 08/05/18. ASSESSMENT: Probably benign, BI-RAD 3 RECOMMENDATION: Follow-up diagnostic mammogram of the right breast in 6 months. Consider breast MRI.
--- NOTE | 2018-08-05 14:07 | USB ---
Reason for exam: additional evaluation requested from abnormal screening. History: Patient is postmenopausal and is nulliparous. 2 cyst aspirations of the left breast. Took hormonal contraceptives for 18 years. US Breast Workup Limited RT Right limited breast ultrasound including focal area of concern, retroareolar and axilla demonstrates no cystic or solid lesion seen. These results were verbally communicated with the patient and result sheet given to the patient on 08/05/18. ASSESSMENT: Negative, BI-RAD 1 RECOMMENDATION: Follow-up diagnostic mammogram of the right breast in 6 months. Consider breast MRI.
== END ==
LOC: RADMAMWWP 10:08
PROVIDERS: ATTEND Family Medicine
DX: R92.8 Other abnormal and inconclusive findings on diagnostic imaging of breast (principal)
CPT/HCPCS: 77061; 77065

== ENCOUNTER → 2018-08-12 | Outpatient (CLI) | payer OTHER ==
[2018-08-12 14:14] VITALS: BP 152/86; PULSE 75; RESP 18; TEMP 96.3; BMI 27.4
--- NOTE | 2018-08-12 14:33 | P.GSHP ---
History of Present Illness H&P Date: 08/12/18 Chief Complaint: right breast radiographic abnormality Sharmaine is a 63 year old white female with a [place] [id number] which revealed a focal asymmetry at the 12:00 anterior right breast which was slightly more defined than prior mammograms. A diagnostic mammogram was performed on 1228 18 of the right breast which did not reveal any discrete abnormality on compression. Secondary to this finding an ultrasound was recommended. On the ultrasound which was performed on 1220 818 the patient did not have any cystic or solid lesions noted. It was suggested the patient undergo a follow-up diagnostic mammogram of the right breast in 6 months. Additionally consideration of a breast MRI was recommended. the patient herself does not feel any lumps or masses in her breasts. She has no nipple discharge or skin changes of concern. She did not have any trauma or infection in the breast. She states that for the past year she has had some intermittent pricking sensation in the left breast which extended up to the nipple area. However she has not had any further episodes of this in the past month. She drinks approximately 4 cups of caffeinated beverages per day. She does not smoke and is not exposed to secondhand smoke. She does not eat large quantities of chocolate. She does not take hormone replacement therapy. The breast discomfort seems to have abated recently. Family History: sister: brain cancer Hormonal History: menarche: 11 : none intentional menopause: 53 BCP: 18 years hormones: none Surgery: none Medical History: 1. heart valve leak 2. achlasia 3. arthritis 4. HTN 5. high cholesterol 6. 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, this is a genetic mutation Respiratory: Denies cough, Denies 7 - Gastrointestinal Gastrointestinal: Denies abdominal pain, Denies diarrhea, Denies nausea, Denies vomiting - Genitourinary (Female) Genitourinary: Denies dysuria, Denies hematuria - Menstruation Menstruation: Reports postmenopausal - Musculoskeletal Comment: arthritis Musculoskeletal: Denies myalgias - Integumentary Integumentary: Denies pruritus, Denies rash - Neurological Neurological: Denies numbness, Denies weakness - Psychiatric Psychiatric: Denies anxiety, Denies depression - Endocrine Endocrine: Denies fatigue, Denies weight change - Hematologic/Lymphatic Comment: xeralto - Allergic/Immunologic Allergic/Immunologic: Reports as per HPI, Reports seasonal allergies Past Medical History Past Medical History: Chest Pain / Angina, Heart Failure, Hyperlipidemia, Hypertension, Osteoarthritis (OA), Pulmonary Embolus (PE) Additional Past Medical History / Comment(s): thyroid nodules, achalasia, oa in feet and hands History of Any Multi-Drug Resistant Organisms: None Reported Past Surgical History: No Surgical Hx Reported Additional Past Surgical History / Comment(s): pt stated never had any sx Past Anesthesia/Blood Transfusion Reactions: No Reported Reaction Additional Past Anesthesia/Blood Transfusion Reaction / Comment(s): pt never had general aa. never had a blood transfusion Smoking Status: Former smoker - Past Family History Mother Family Medical History: Osteoarthritis (OA), Thyroid Disorder Additional Family Medical History / Comment(s): macular degeneration. valve replacment Father Family Medical History: Myocardial Infarction ([place]) Medications and Allergies Home Medications Medication Instructions Recorded Confirmed Type EPINEPHrine (Auto Inject) [Epipen] 1 injection SQ ONCE PRN 01/03/16 07/19/18 History Folic Acid 1 mg PO HS 01/03/16 07/19/18 History Rivaroxaban [Xarelto] 20 mg PO W/SUPPER 01/03/16 07/19/18 History Rosuvastatin [Crestor] 10 mg PO DAILY 01/03/16 07/19/18 History Acetaminophen Tab [Tylenol] 1,000 mg PO Q6HR PRN 07/19/18 07/19/18 History Cartilage/Collagen/Bor/Hyalur 1 tab PO DAILY 07/19/18 07/19/18 History [Move Free Ultra Tablet] Ubidecarenone [Co Q-10] 100 mg PO DAILY 07/19/18 07/19/18 History Vitamin C/Biotin [Hair, Skin and 1 tab PO DAILY 07/19/18 07/19/18 History Nails] Vits A,C,E/Lutein/Minerals 1 tab PO DAILY 07/19/18 07/19/18 History [Ocuvite with Lutein Tablet] Aspirin 81 mg PO DAILY #30 chew 07/20/18 Rx Cyclobenzaprine [Flexeril] 5 mg PO BID #30 tab 07/20/18 Rx Metoprolol Tartrate [Lopressor] 25 mg PO BID #60 tab 07/20/18 Rx Naproxen 500 mg PO BID #60 tablet 07/20/18 Rx Allergies Allergy/AdvReac Type Severity Reaction Status Date / Time amlodipine besylate Allergy Swelling Verified 07/19/18 13:41 [From [facility]] clindamycin Allergy Unknown Verified 07/19/18 13:41 Childhood venom-honey bee Allergy Anaphylaxis Verified 07/19/18 13:41 [bee venom (honey bee)] Surgical - Exam BMI 27.4 - General well developed, well nourished, no distress - Eyes normal ocular movement, no icteric - ENT no hearing loss, no congestion - Neck no masses, trachea midline - Respiratory normal respiratory effort, clear to auscultation - Cardiovascular Rhythm: regular Heart Sounds: normal: S1, S2 - Abdomen Abdomen: soft, non tender, no guarding, no rigid, no rebound - Integumentary no rash, no abnormal pigmentation - Neurologic no disoriented, no combative - Psychiatric oriented to time, oriented to person, oriented to place, speech is normal, memory intact Breast examination: Right breast: Multi-positional exam fibrocystic changes slight increased density in the 12 o'clock position no discrete mass Right axilla: No adenopathy of concern Left breast: Multi-positional exam of dominant masses or nodules of concern Left axilla: No adenopathy of concern Assessment and Plan Assessment: Impression: 1. heart valve leak 2. achlasia 3. arthritis 4. HTN 5. high cholesterol 6. pulmonary embolism/ patient on Xeralto 7. Fibrocystic breast changes/slight increased density right breast 12 o'clock position no discrete mass radiographically or on exam which would warrant biopsy Plan: 1. We will attempt to get bilateral breast MRI patient is on Xeralto toe and would be hesitant to do any FNA or tissue evaluation of the right breast at the 12 o'clock position if not necessary 2. Medical management of medical conditions 3. Follow-up after MRI performed CC: Dr. English
== END ==
LOC: WWCWWP 14:00
PROVIDERS: ATTEND Surgery
DX: Z53.9 Procedure and treatment not carried out, unspecified reason (principal)

== ENCOUNTER → 2018-08-25 | Outpatient (CLI) | payer OTHER ==
--- NOTE | 2018-08-29 08:59 | BMR ---
EXAMINATION TYPE: MR breast BILAT wo/w con DATE OF EXAM: 08/25/2018 COMPARISON: Diagnostic bilateral 3-D mammogram July 14, 2018 BI-RADS 0. CTA chest July 19 8. Diagnostic right breast ultrasound August 05, 2018 BI-RADS 1 3-D mammogram diagnostic workup Dec ember 2017 BI-RADS 3 HISTORY: Abnormal Mammo. CONTRAST: Multiplanar, multisequence images of the breasts were acquired utilizing 7 mL intravenous Gadavist ga dolinium contrast. TECHNIQUE: A series of fat and water weighted images in the long and short axis views of both breasts are obtained in conjunction with dynamic contrast MRI with subtraction technique. Three-dimensional and additional postprocessing imaging is created on independent workstation and reviewed during [facility] interpretation of this study. FINDINGS: Heterogeneously dense fibroglandular tissue is redemonstrated throughout both breasts. Gee gn-appearing bilateral axillary lymph nodes are present. No suspicious axillary adenopathy is noted. T2-weighted images show no suspicious cysts or cystic lesions throughout either breast. No suspicious intramammary adenopathy is identified on delayed dynamic postcontrast imaging. No suspicious fat con taining lesions are noted on nonfat saturated T1 images. There is minimal symmetric background enhanc ement. With regard to the left breast no suspicious skin thickening is seen. No pathologic enhancement is no eulalia. No suspicious masses are identified. Chest wall is intact. With regard to the right breast no suspicious masses are identified with particular attention to the 12:00 region at area of mammogram concern. No pathologic enhancement is seen. No suspicious skin thic kening is noted. Chest wall is intact. IMPRESSION: No MRI evidence for invasive malignancy in either breast. BI-RADS 1 negative study right breast BI-RADS 1 negative study left breast. Recommendation: Patient is due for bilateral breast mammogram in July 2019 to be back on annual s chedule.
== END | disposition home or self-care (01) ==
LOC: RADMRIMAIN 16:47
PROVIDERS: ATTEND Surgery
DX: R92.8 Other abnormal and inconclusive findings on diagnostic imaging of breast (principal)
CPT/HCPCS: 77049; C8937; A9585

== ENCOUNTER → 2018-09-02 | Outpatient (CLI) | payer OTHER ==
--- NOTE | 2018-09-02 11:54 | P.PN ---
Progress Note - Text Progress Note Date: 09/02/18 Sharmaine is a 63-year-old white female who was initially seen 08/12/2018. At that time she was noted to have some focal asymmetry at the 12 o'clock position of the anterior right breast slightly more defined than prior mammograms. A diagnostic mammogram had been performed which did not reveal any discrete abnormalities on compression. An ultrasound was recommended and the patient did not have any cystic or solid lesions noted. She it was suggested she undergo follow-up diagnostic mammogram of the right breast in 6 months. Additionally consideration of breast MRI was recommended. She was able to undergo a breast MRI which was performed which did not show any radiographic evidence of malignancy in either breast. Additionally the patient was complaining of some discomfort in her left breast which has improved. We have discussed the fact that she drinks 4 cups of caffeinated beverages per day which she has continued to do. She does not smoke and is not exposed to secondhand smoke. She does not eat large quantities of chocolate. She does not take hormone replacement therapy. The breast discomfort does seem to have decreased. At this time no repeat examination was not performed. The patient is doing well and is going to have repeat bilateral mammogram in July 2019. She will call us if she has any questions or concerns prior to that time. Cc: Dr. Barajas
[2018-09-02 11:55] VITALS: BP 150/89; PULSE 76; RESP 18; TEMP 96; BMI 27.4
== END ==
LOC: WWCWWP 11:37
PROVIDERS: ATTEND Surgery
DX: Z53.9 Procedure and treatment not carried out, unspecified reason (principal)

== ENCOUNTER → 2019-01-04 | Outpatient (CLI) | payer OTHER ==
[2019-01-04 16:59] LABS: LDL Cholesterol,Calculated 90.2 mg/dL (0.0-131.0); VLDL Calculation 20.8 mg/dL (5.00-40.00)
== END ==
LOC: LABWHC1 11:20
PROVIDERS: ATTEND Nurse Practitioner Adult Health
DX: E78.2 Mixed hyperlipidemia (principal)
CPT/HCPCS: 36415; 80061; 84450; 84460

== ENCOUNTER → 2019-03-10 | Outpatient (CLI) | payer OTHER ==
[2019-03-10 11:36] LABS: Basophils % (A) 0 %; Eosinophils # (A) 0.2 k/uL (0-0.7); Eosinophils % (A) 4 %; HCT 40.3 % (34.0-46.0); HGB 13.2 gm/dL (11.4-16.0); Lymphocytes # (A) 1.4 k/uL (1.0-4.8); Lymphocytes % (A) 25 %; MCH 32.8 pg (25.0-35.0); MCHC 32.7 g/dL (31.0-37.0); MCV 100.2 fL (80.0-100.0); Mean Platelet Volume 7.2; Monocytes # (A) 0.4 k/uL (0-1.0); Monocytes % (A) 7 %; Neutrophils # (A) 3.5 k/uL (1.3-7.7); Neutrophils % (A) 61 %; Platelet Count 230 k/uL (150-450); RBC 4.02 m/uL (3.80-5.40); RDW 12.7 % (11.5-15.5); WBC 5.8 k/uL (3.8-10.6)
[2019-03-10 18:45] LABS: African American GFR (CKD) 106.1 (60.0-200.0); Anion Gap 13.6 mmol/L (4.00-12.00); BUN/Creat Ratio 18.57 Ratio (12.00-20.00); Calcium 9.6 mg/dL (8.7-10.3); Carbon Dioxide 24.4 mmol/L (21.6-31.8); Potassium 4.3 mmol/L (3.5-5.5)
== END | disposition home or self-care (01) ==
LOC: LABWHC1 10:57
PROVIDERS: ATTEND Family Medicine
DX: I10 Essential (primary) hypertension (principal); E72.11 Homocystinuria
CPT/HCPCS: 36415; 80048; 82272; 83090; 85025

== ENCOUNTER → 2019-06-28 | Outpatient (CLI) | payer MEDICARE, BC ==
[2019-06-28 20:26] LABS: African American GFR (CKD) 89.7 (60.0-200.0); Albumin 4.8 g/dL (3.80-4.90); Albumin/Globulin Ratio 2.09 (1.60-3.17); Anion Gap 14.9 mmol/L (4.00-12.00); BUN/Creat Ratio 21.25 Ratio (12.00-20.00); Carbon Dioxide 24.1 mmol/L (21.6-31.8); Chol/HDL Ratio 2.4; Globulin 2.3 g/dL (1.6-3.3); LDL Cholesterol,Calculated 97.2 mg/dL (0.0-131.0); Non-African American GFR(CKD) 77.4 (60.0-200.0); Potassium 4.8 mmol/L (3.5-5.5); Total Bilirubin 0.8 mg/dL (0.2-1.2); Total Protein 7.1 g/dL (6.2-8.2); VLDL Calculation 14.8 mg/dL (5.00-40.00)
== END | disposition home or self-care (01) ==
LOC: LABWHC1 11:12
PROVIDERS: ATTEND Internal Medicine Interventional Cardiology
DX: E78.2 Mixed hyperlipidemia (principal)
CPT/HCPCS: 36415; 80053; 80061

== ENCOUNTER → 2019-07-21 | Outpatient (CLI) | payer BC, MEDICARE, OTHER ==
--- NOTE | 2019-07-24 10:30 | MM ---
Reason for exam: additional evaluation requested from prior study. Last mammogram was performed 1 year ago. History: Patient is postmenopausal and is nulliparous. 2 cyst aspirations of the left breast. Took hormonal contraceptives for 18 years. Physical Findings: Nurse did not find any significant physical abnormalities on exam. MG 3D Diag Mammo W/Cad SILVIA Bilateral CC and MLO view(s) were taken. Prior study comparison: August 05, 2018, right breast MG 3d work up w/cad RT. July 14, 2018, bilateral MG 3d screening mammo w/cad. The breast tissue is heterogeneously dense. This may lower the sensitivity of mammography. No suspicious abnormality. No significant new findings when compared with previous films. These results were verbally communicated with the patient and result sheet given to the patient on 07/21/19. ASSESSMENT: Negative, BI-RAD 1 RECOMMENDATION: Routine screening mammogram of both breasts in 1 year.
== END | disposition home or self-care (01) ==
LOC: RADMAMWWP 12:55
PROVIDERS: ATTEND Surgery
DX: R92.8 Other abnormal and inconclusive findings on diagnostic imaging of breast (principal)
CPT/HCPCS: 77062; 77066

== ENCOUNTER 2020-06-05 08:49 | Day surgery (SDC) | payer MEDICARE, BC ==
[2020-06-03 10:03] VITALS: BMI 28.1
[~2020-06-05 08:49] MED LIST: LACTATED RINGERS 1,000 ML IV SCH; MIDAZOLAM 2 MG/2 ML VIAL IV PRN; ONDANSETRON 4 MG/2 ML VIAL IVP PRN; fentaNYL (PF) 50 MCG/ML 2 ML AMP IV PRN
[2020-06-05 09:47] VITALS: RESP 16; TEMP 97.3
[2020-06-05] MEDS ORDERED: LIDOCAINE 1% (10MG/ML) FOR IV START INTRADERMA ONE (09:49)
[2020-06-05] MEDS ORDERED: LIDOCAINE 1% INJ 10MG/ML (20 ML MDV) ONE (10:35)
[2020-06-05] MEDS ORDERED: PROPOFOL 10 MG/ML 20 ML VIAL IV ONE (10:35)
--- NOTE | 2020-06-05 11:02 | P.PCN ---
Date of Procedure: 06/05/20 Procedure(s) Performed: BRIEF HISTORY: Patient is a 65-year-old pleasant female scheduled for an elective colonoscopy as a part of screening for colorectal neoplasia. PROCEDURE PERFORMED: Colonoscopy with biopsy. PREOPERATIVE DIAGNOSIS: Screening for colon cancer. IV sedation per Anesthesia. PROCEDURE: After informed consent was obtained, the patient, was brought into the endoscopy unit. IV sedation was administered by Anesthesia under continuous monitoring. Digital rectal examination was normal. Initially the Olympus CF-160 flexible video colonoscope was then inserted in the rectum, gradually advanced into the cecum without any difficulty. Careful examination was performed as the scope was gradually being withdrawn. Ileocecal valve and the appendiceal orifice were visualized and appeared normal. Prep was excellent. Mucosa of the cecum, appeared normal. In the ascending colon there was a 4 mm polyp that was removed by cold biopsy. Rest of the ascending colon, transverse colon, descending colon, sigmoid colon, and rectum appeared normal. Retroflexion was performed in the rectum and small internal hemorrhoids were seen. The patient tolerated the procedure well. IMPRESSION: 4 mm ascending colon polyp status post removal by cold biopsy Small internal hemorrhoids RECOMMENDATIONS: Findings of this examination were discussed with the patientas well as her family. She was advised to follow with the biopsy results. If the biopsy shows an adenoma she can have a repeat colonoscopy in 5 years].
[2020-06-05 11:19] VITALS: BP 121/73; PULSE 70
== END 2020-06-05 11:58 | disposition home or self-care (01) ==
LOC: ORWHC2ENDO 08:49
PROVIDERS: ATTEND Internal Medicine Gastroenterology
DX: Z12.11 Encounter for screening for malignant neoplasm of colon (principal); D12.2 Benign neoplasm of ascending colon; K64.8 Other hemorrhoids; I10 Essential (primary) hypertension; E78.5 Hyperlipidemia, unspecified; M19.90 Unspecified osteoarthritis, unspecified site; Z79.01 Long term (current) use of anticoagulants; Z88.1 Allergy status to other antibiotic agents; Z88.8 Allergy status to other drugs, medicaments and biological substances; Z79.899 Other long term (current) drug therapy; Z86.718 Personal history of other venous thrombosis and embolism
CPT/HCPCS: 88305; 45380; J2001; J2704

== ENCOUNTER → 2020-11-14 | Outpatient (CLI) | payer MEDICARE, BC ==
[2020-11-14 22:13] LABS: Chol/HDL Ratio 2.88
== END | disposition home or self-care (01) ==
LOC: LABWHC1 11:34
PROVIDERS: ATTEND Family Medicine
DX: E78.5 Hyperlipidemia, unspecified (principal)
CPT/HCPCS: 36415; 80061

== ENCOUNTER 2021-02-26 08:48 | Day surgery (SDC) | payer MEDICARE, BC ==
[2021-02-24 10:35] VITALS: BMI 29.2
[~2021-02-26 08:48] MED LIST changes: +LIDOCAINE 1% (10MG/ML) FOR IV START INTRADERMA PRN; -MIDAZOLAM 2 MG/2 ML VIAL IV PRN; -ONDANSETRON 4 MG/2 ML VIAL IVP PRN; -fentaNYL (PF) 50 MCG/ML 2 ML AMP IV PRN
[2021-02-26 09:27] VITALS: TEMP 97.2
[2021-02-26] MEDS ORDERED: PROPOFOL 10 MG/ML 20 ML VIAL IV ONE (09:41)
[2021-02-26] MEDS ORDERED: LIDOCAINE 1% INJ 10MG/ML (20 ML MDV) ONE (09:41)
--- NOTE | 2021-02-26 09:53 | P.PCN ---
Date of Procedure: 02/26/21 Procedure(s) Performed: BRIEF HISTORY: Patient is a 65-year-old, pleasant, white female scheduled for an upper endoscopy as a part of evaluation of early satiety, abdominal bloating and throat irritation on and off for the last several months duration.. PROCEDURE PERFORMED: Esophagogastroduodenoscopy With biopsy PREOPERATIVE DIAGNOSIS: ABDOMINAL BLOATING/EARLY SATIETY/THROAT IRRITATION OF SEVERAL MONTHS DURATION IV sedation per anesthesia. PROCEDURE: After informed consent was obtained, the patient was brought into the endoscopy unit. IV sedation was administered by Anesthesia under continuous monitoring. Initially the Olympus GIF-140 video endoscope was inserted into the mouth. Esophagus intubated without any difficulty. It was gradually advanced into the stomach and duodenum and carefully examined. The bulb and the second part of the duodenum appeared normal. as his were done from the duodenum to rule out celiac disease. The scope at this time was withdrawn to the stomach, adequately insufflated with air, and upon careful examination, mucosa of the antrum, had mild diffuse gastritis and biopsies were done from this area. The body, cardia and the fundus appeared normal. The scope was then withdrawn into the esophagus. The GE junction was located at 39 cm from the incisors. small hiatal hernia noted. There was circumferential erythema and superficial erosions in the distal esophagus consistent with LA grade B reflux esophagitis. The Rest of the esophagus appeared normal and the patient tolerated the procedure well. IMPRESSION: 1.. Mild antral gastritis 2. Circumferential erythema as well as linear erosions and esophagus consistent with LA grade B reflux esophagitis 3. Small hiatal hernia . RECOMMENDATIONS: The findings of this examination were discussed with the patient as well as her family. She was advised to follow with the biopsy results. She was given her perception for Prilosec 20 mg daily to be taken half hour before dinnertime and follow antireflux measures.
[2021-02-26 09:59] VITALS: RESP 16
[2021-02-26 10:11] VITALS: BP 135/82; PULSE 75
== END 2021-02-26 10:28 | disposition home or self-care (01) ==
LOC: OR 08:48
PROVIDERS: ATTEND Internal Medicine Gastroenterology
DX: K29.50 Unspecified chronic gastritis without bleeding (principal); K21.00 Gastro-esophageal reflux disease with esophagitis, without bleeding; K44.9 Diaphragmatic hernia without obstruction or gangrene; E78.5 Hyperlipidemia, unspecified; I34.0 Nonrheumatic mitral (valve) insufficiency; Z87.891 Personal history of nicotine dependence; Z86.718 Personal history of other venous thrombosis and embolism; Z79.01 Long term (current) use of anticoagulants; Z79.899 Other long term (current) drug therapy; Z88.1 Allergy status to other antibiotic agents; Z88.8 Allergy status to other drugs, medicaments and biological substances; Z91.030 Bee allergy status
CPT/HCPCS: 88305; 43239; J2001; J2704

== ENCOUNTER → 2021-06-18 | Outpatient (CLI) | payer MEDICARE, BC ==
--- NOTE | 2021-06-20 13:47 | MM ---
Reason for exam: screening (asymptomatic). Last mammogram was performed 1 year and 11 months ago. History: Patient is postmenopausal and is nulliparous. 2 cyst aspirations of the left breast. Took hormonal contraceptives for 18 years. Physical Findings: A clinical breast exam by your physician is recommended on an annual basis and results should be correlated with mammographic findings. MG 3D Screening Mammo W/Cad Bilateral CC and MLO view(s) were taken. Prior study comparison: July 21, 2019, bilateral MG 3d diag mammo w/cad [facility]. August 05, 2018, right breast MG 3d work up w/cad [facility]. The breast tissue is heterogeneously dense. This may lower the sensitivity of mammography. No significant changes when compared with prior studies. ASSESSMENT: Benign, BI-RAD 2 RECOMMENDATION: Routine screening mammogram of both breasts in 1 year.
== END | disposition home or self-care (01) ==
LOC: RADMAMWWP 15:59
PROVIDERS: ATTEND Family Medicine
DX: Z12.31 Encounter for screening mammogram for malignant neoplasm of breast (principal); Z78.0 Asymptomatic menopausal state
CPT/HCPCS: 77063; 77067

== ENCOUNTER → 2021-07-10 | Outpatient (CLI) | payer MEDICARE, BC ==
[2021-07-10 19:23] LABS: ALT 107 U/L (8-44); AST 149 U/L (13-35); African American GFR (CKD) 104.3 (60.0-200.0); Albumin 4.8 g/dL (3.8-4.9); Albumin/Globulin Ratio 1.61 (1.60-3.17); Alkaline Phosphatase 84 U/L (41-126); BUN/Creat Ratio 24.42 Ratio (12.00-20.00); Blood Urea Nitrogen 16.9 mg/dL (9.0-27.0); Calcium 10.1 mg/dL (8.7-10.3); Carbon Dioxide 24.9 mmol/L (20.0-27.5); Chloride 100 mmol/L (96-109); Chol/HDL Ratio 2.63 Ratio; Glucose 96 mg/dL (70-110); Potassium 4.9 mmol/L (3.5-5.5); Sodium 140 mmol/L (135-145); Total Protein 7.8 g/dL (6.2-8.2); VLDL Calculation 13.78 mg/dL (5.00-40.00)
== END | disposition home or self-care (01) ==
LOC: LABWHC1 11:47
PROVIDERS: ATTEND Internal Medicine Interventional Cardiology
DX: E78.2 Mixed hyperlipidemia (principal)
CPT/HCPCS: 36415; 80053; 80061

== ENCOUNTER → 2021-08-11 | Outpatient (CLI) | payer MEDICARE, BC ==
[2021-08-11 20:55] LABS: ALT 66 U/L (8-44); AST 60 U/L (13-35)
== END | disposition home or self-care (01) ==
LOC: LABWHC1 12:06
PROVIDERS: ATTEND Internal Medicine Interventional Cardiology
DX: E78.2 Mixed hyperlipidemia (principal)
CPT/HCPCS: 36415; 84450; 84460

== ENCOUNTER → 2022-01-12 | Outpatient (CLI) | payer MEDICARE, BC ==
[2022-01-12 18:18] LABS: ALT 36 U/L (8-44); AST 36 U/L (13-35); Chol/HDL Ratio 2.17 Ratio; LDL Cholesterol,Calculated 93.5 mg/dL (0.0-131.0)
== END | disposition home or self-care (01) ==
LOC: LABWHC1 11:00
PROVIDERS: ATTEND Nurse Practitioner Adult Health
DX: E78.2 Mixed hyperlipidemia (principal)
CPT/HCPCS: 36415; 80061; 84450; 84460

== ENCOUNTER → 2022-06-25 | Outpatient (CLI) | payer MEDICARE, BC ==
--- NOTE | 2022-06-26 08:36 | MM ---
Reason for Exam: Screening (asymptomatic). Last screening mammogram was performed 12 month(s) ago. Patient History: Menarche at age 11. Patient has no children. Postmenopausal. Patient used Hormonal Contraceptives for 18 years. Cyst Aspiration on the Left side. Cyst Aspiration on the Left side. Risk Values: Nguyen 5 year model risk: 1.9%. NCI Lifetime model risk: 6.2%. Prior Study Comparison: 08/05/2018 Right Diagnostic Mammogram, [facility]. 07/21/2019 Bilateral Diagnostic Mammogram, [facility]. 06/18/2021 Bilateral Screening Mammogram, [facility]. Tissue Density: The breast tissue is heterogeneously dense. This may lower the sensitivity of mammography. Findings: Analyzed By CAD. There is no suspicious group of microcalcifications or new suspicious mass in either breast. Overall Assessment: Benign, BI-RAD 2 Management: Screening Mammogram of both breasts in 1 year. A clinical breast exam by your physician is recommended on an annual basis and results should be correlated with mammographic findings. Electronically signed and approved by: Freddy Hampton M.D. Radiologis
== END | disposition home or self-care (01) ==
LOC: RADMAMWWP 16:38
PROVIDERS: ATTEND Family Medicine
DX: Z12.31 Encounter for screening mammogram for malignant neoplasm of breast (principal); Z78.0 Asymptomatic menopausal state
CPT/HCPCS: 77063; 77067

== ENCOUNTER → 2022-07-11 | Outpatient (CLI) | payer MEDICARE, BC ==
[2022-07-11 18:12] LABS: Basophils # (A) 0.05 X 10*3/uL (0.00-0.10); Basophils % (A) 0.8 %; Eosinophils # (A) 0.33 X 10*3/uL (0.04-0.35); Eosinophils % (A) 5.3 %; HCT 41.5 % (37.2-46.3); HGB 13.1 g/dL (12.0-15.0); Immature Grans, Automated 0.2 %; Lymphocytes # (A) 2.23 X 10*3/uL (0.90-5.00); Lymphocytes % (A) 35.6 %; MCH 31.4 pg (27.0-32.0); MCHC 31.6 g/dL (32.0-37.0); MCV 99.5 fL (80.0-97.0); Mean Platelet Volume 11.5 fL (9.5-12.2); Monocytes # (A) 0.59 X 10*3/uL (0.20-1.00); Monocytes % (A) 9.4 %; NRBC Per 100 WBC 0 /100 WBCS (0.0-0.0); Neutrophils # (A) 3.06 X 10*3/uL (1.80-7.70); Neutrophils % (A) 48.7 %; Platelet Count 280 X 10*3/uL (140-440); RBC 4.17 X 10*6/uL (4.10-5.20); RDW 12.3 % (11.5-14.5); WBC 6.27 X 10*3/uL (4.50-10.00)
[2022-07-11 22:14] LABS: ALT 38 U/L (8-44); AST 36 U/L (13-35); African American GFR (CKD) 99.2 (60.0-200.0); Albumin 4.5 g/dL (3.8-4.9); Alkaline Phosphatase 58 U/L (41-126); BUN/Creat Ratio 15.35 Ratio (12.00-20.00); Blood Urea Nitrogen 11.1 mg/dL (9.0-27.0); Calcium 10.1 mg/dL (8.7-10.3); Carbon Dioxide 22.8 mmol/L (20.0-27.5); Chloride 102 mmol/L (96-109); Chol/HDL Ratio 2.42 Ratio; Globulin 2.4 g/dL (1.6-3.3); Glucose 98 mg/dL (70-110); LDL Cholesterol,Calculated 74.9 mg/dL (0.0-131.0); Non-African American GFR(CKD) 85.6 (60.0-200.0); Potassium 4.6 mmol/L (3.5-5.5); Sodium 141 mmol/L (135-145); Total Protein 6.9 g/dL (6.2-8.2); VLDL Calculation 14.32 mg/dL (5.00-40.00)
== END | disposition home or self-care (01) ==
LOC: LABWHC1 10:08
PROVIDERS: ATTEND Internal Medicine Interventional Cardiology
DX: I10 Essential (primary) hypertension (principal); E78.2 Mixed hyperlipidemia; Z86.711 Personal history of pulmonary embolism
CPT/HCPCS: 36415; 80053; 80061; 83090; 84439; 84443; 85025

== ENCOUNTER → 2023-01-12 | Outpatient (CLI) | payer MEDICARE, BC ==
[2023-01-12 20:21] LABS: Chol/HDL Ratio 2.54 Ratio; LDL Cholesterol,Calculated 96.2 mg/dL; T4, Free (Free Thyroxine) 1.31 ng/dL; VLDL Calculation 16.58 mg/dL
[2023-01-12 20:35] LABS: ALT 59 U/L; AST 76 U/L; BUN/Creat Ratio 15.86 Ratio; Blood Urea Nitrogen 11.1 mg/dL; Carbon Dioxide 24.1 mmol/L; Chloride 101 mmol/L; Glucose 82 mg/dL; Potassium 4.7 mmol/L; Sodium 142 mmol/L
[2023-01-13 01:27] LABS: HCT 45.4 %; HGB 14.2 d/dL; MCH 32.9 pg; MCHC 31.3 d/dL; MCV 105.3 FL; Mean Platelet Volume 11.1 FL; NRBC Per 100 WBC 0 X 10*3/uL; Platelet Count 170 X 10*3/uL; RBC 4.31 X 10*6/uL; RDW 12.6 %; WBC 5.83 X 10*3/uL
[2023-01-13 04:36] LABS: Basophils # (A) 0.04 X 10*3/uL; Basophils % (A) 0.7 %; Eosinophils # (A) 0.28 X 10*3/uL; Eosinophils % (A) 4.8 %; Lymphocytes # (A) 1.91 X 10*3/uL; Lymphocytes % (A) 32.8 %; Monocytes % (A) 10.3 %; Neutrophils # (A) 2.98 X 10*3/uL; Neutrophils % (A) 51.1 %
== END | disposition home or self-care (01) ==
LOC: LABWHC1 11:30
PROVIDERS: ATTEND Internal Medicine Interventional Cardiology
DX: I10 Essential (primary) hypertension (principal); E78.2 Mixed hyperlipidemia
CPT/HCPCS: 36415; 80048; 80061; 84439; 84443; 84450; 84460; 85025

== ENCOUNTER → 2023-03-04 | Outpatient (CLI) | payer MEDICARE, BC ==
--- NOTE | 2023-03-04 18:11 | US ---
EXAMINATION TYPE: US abdomen complete DATE OF EXAM: 03/04/2023 COMPARISON: NONE CLINICAL INDICATION: Female, 67 years old with history of R94.5 ABN LIVER FUNCTION RESULTS; elevated labs TECHNIQUE: Multiple sonographic images of the abdomen are obtained. FINDINGS: EXAM MEASUREMENTS: Liver Length: 13.8 cm Gallbladder Wall: 0.2 cm CBD: 0.5 cm Spleen: 8.3 cm Right Kidney: 9.9 x 4.3 x 5.2 cm Left Kidney: 10.6 x 4.6 x 5.4 cm Pancreas: not seen due to bowel gas Liver: Increased echogenicity without focal lesion. Gallbladder: fold Evidence for sonographic Morgan's sign: no CBD: wnl Spleen: wnl Right Kidney: wnl Left Kidney: wnl Upper IVC: wnl Abd Aorta: wnl IMPRESSION: At least moderate hepatic steatosis. Correlate with LFTs, lipid profile, and patient risk factors. No gallstones or biliary ductal dilatation.
== END | disposition home or self-care (01) ==
LOC: RADUSWWP 09:38
PROVIDERS: ATTEND Family Medicine
DX: K76.0 Fatty (change of) liver, not elsewhere classified (principal); R94.5 Abnormal results of liver function studies
CPT/HCPCS: 76700

== ENCOUNTER → 2023-03-08 | Outpatient (CLI) | payer MEDICARE, BC ==
[2023-03-09 02:14] LABS: ALT 42 U/L (8-44); AST 40 U/L (13-35); Albumin 4.9 d/dL (3.8-4.9); Albumin/Globulin Ratio 2.13 Ratio (1.60-3.17); Alkaline Phosphatase 53 U/L (41-126); Bilirubin, Conjugated <0.20 mg/dL (0.20-0.40); Bilirubin,Unconjugated >0.10 mg/dL (0.20-1.00); Globulin 2.3 d/dL (1.6-3.3); Total Bilirubin 0.3 mg/dL (0.3-1.2); Total Protein 7.2 d/dL (6.2-8.2)
== END | disposition home or self-care (01) ==
LOC: LABWHC1 15:44
PROVIDERS: ATTEND Family Medicine
DX: R94.5 Abnormal results of liver function studies (principal)
CPT/HCPCS: 36415; 80076

== ENCOUNTER → 2023-07-06 | Outpatient (CLI) | payer MEDICARE, BC ==
--- NOTE | 2023-07-07 09:45 | MM ---
Reason for Exam: Screening (asymptomatic). Last screening mammogram was performed 12 month(s) ago. Patient History: Menarche at age 11. Patient has no children. Postmenopausal. Patient used Hormonal Contraceptives for 18 years. Cyst Aspiration on the Left side. Cyst Aspiration on the Left side. Risk Values: Nguyen 5 year model risk: 1.9%. NCI Lifetime model risk: 5.9%. Prior Study Comparison: 07/21/2019 Bilateral Diagnostic Mammogram, [facility]. 06/18/2021 Bilateral Screening Mammogram, [facility]. 06/25/2022 Bilateral MG 3D screening mammo w/cad, [facility]. Tissue Density: The breast tissue is heterogeneously dense. This may lower the sensitivity of mammography. Findings: Analyzed By CAD. There is no suspicious group of microcalcifications or new suspicious mass. Overall Assessment: Negative, BI-RAD 1 Management: Screening Mammogram of both breasts in [address] [facility] will attempt to contact patient to return for supplemental views and ultrasound if indicated. Patient should continue monthly self-breast exams. A clinical breast exam by your physician is recommended on an annual basis. This exam should not preclude additional follow-up of suspicious palpable abnormalities. Note on Nguyen scores and lifetime risk: 1. A Nguyen score greater than 3% is considered moderate risk. If this is the case, consider specialist referral to assess eligibility for a risk reducing agent. 2. If overall lifetime risk for the development of breast cancer is 20% or higher, the patient may qualify for future screening with alternating mammogram and breast MRI. Electronically signed and approved by: Skyler Ferrera DO
== END | disposition home or self-care (01) ==
LOC: RADMAMWWP 13:15
PROVIDERS: ATTEND Family Medicine
DX: Z12.31 Encounter for screening mammogram for malignant neoplasm of breast (principal); Z78.0 Asymptomatic menopausal state
CPT/HCPCS: 77063; 77067

== ENCOUNTER → 2023-07-20 | Outpatient (CLI) | payer MEDICARE, BC ==
[2023-07-20 18:23] LABS: ALT 37 U/L (8-44); AST 38 U/L (13-35); Chol/HDL Ratio 2.09 Ratio; LDL Cholesterol,Calculated 68.2 mg/dL (0.0-131.0); VLDL Calculation 14.82 mg/dL (5.00-40.00)
== END | disposition home or self-care (01) ==
LOC: LABWHC1 11:50
PROVIDERS: ATTEND Internal Medicine Interventional Cardiology
DX: E78.2 Mixed hyperlipidemia (principal)
CPT/HCPCS: 36415; 80061; 84450; 84460

== ENCOUNTER → 2023-11-22 | Outpatient (CLI) | payer MEDICARE, BC ==
[2023-11-22 20:06] LABS: HCT 41.3 % (37.2-46.3); HGB 13.4 g/dL (12.0-15.0); MCH 31.8 pg (27.0-32.0); MCHC 32.4 g/dL (32.0-37.0); MCV 98.1 FL (80.0-97.0); Mean Platelet Volume 10.8 FL (9.5-12.2); NRBC Per 100 WBC 0 X 10*3/uL (0.00-0.01); Platelet Count 269 X 10*3/uL (140-440); RBC 4.21 X 10*6/uL (4.10-5.20); RDW 12.2 % (11.5-14.5)
[2023-11-22 21:27] LABS: ALT 28 U/L (8-44); AST 35 U/L (13-35); Albumin 4.8 g/dL (3.8-4.9); Albumin/Globulin Ratio 1.78 Ratio (1.60-3.17); Alkaline Phosphatase 60 U/L (41-126); BUN/Creat Ratio 17.14 Ratio (12.00-20.00); Calcium 10.8 mg/dL (8.7-10.3); Carbon Dioxide 26.4 mmol/L (21.6-31.8); Chloride 101 mmol/L (96-109); Globulin 2.7 g/dL (1.6-3.3); Glucose 94 mg/dL (70-110); Potassium 4.8 mmol/L (3.5-5.5); Sodium 141 mmol/L (135-145); Total Bilirubin 0.4 mg/dL (0.3-1.2); Total Protein 7.5 g/dL (6.2-8.2)
== END | disposition home or self-care (01) ==
LOC: LABWHC1 13:56
PROVIDERS: ATTEND Internal Medicine Gastroenterology
DX: R74.01 Elevation of levels of liver transaminase levels (principal)
CPT/HCPCS: 36415; 80053; 81596; 85027

== ENCOUNTER → 2024-01-19 | Outpatient (CLI) | payer MEDICARE, BC ==
[2024-01-19 18:28] LABS: ALT 34 U/L (8-44); AST 45 U/L (13-35); Albumin 4.9 g/dL (3.8-4.9); Albumin/Globulin Ratio 1.81 Ratio (1.60-3.17); Alkaline Phosphatase 65 U/L (41-126); BUN/Creat Ratio 17.57 Ratio (12.00-20.00); Blood Urea Nitrogen 12.3 mg/dL (9.0-27.0); Calcium 10.2 mg/dL (8.7-10.3); Carbon Dioxide 24.7 mmol/L (21.6-31.8); Chloride 101 mmol/L (96-109); Chol/HDL Ratio 1.75 Ratio; Globulin 2.7 g/dL (1.6-3.3); Glucose 95 mg/dL (70-110); LDL Cholesterol,Calculated 70.2 mg/dL (0.0-131.0); Potassium 4.5 mmol/L (3.5-5.5); Sodium 137 mmol/L (135-145); Total Bilirubin 0.7 mg/dL (0.3-1.2); Total Protein 7.6 g/dL (6.2-8.2); VLDL Calculation 11.84 mg/dL (5.00-40.00)
== END | disposition home or self-care (01) ==
LOC: LABWHC1 11:14
PROVIDERS: ATTEND Internal Medicine Interventional Cardiology
DX: E78.2 Mixed hyperlipidemia (principal)
CPT/HCPCS: 36415; 80053; 80061

== ENCOUNTER → 2024-05-22 | Outpatient (CLI) | payer MEDICARE, BC ==
[2024-05-22 15:24] LABS: Basophils # (A) 0.03 X 10*3/uL (0.00-0.10); Basophils % (A) 0.4 %; HCT 41.7 % (37.2-46.3); HGB 13.5 g/dL (12.0-15.0); Lymphocytes # (A) 2.21 X 10*3/uL (0.90-5.00); Lymphocytes % (A) 29.8 %; MCHC 32.4 g/dL (32.0-37.0); Mean Platelet Volume 11.1 FL (9.5-12.2); Monocytes # (A) 0.61 X 10*3/uL (0.20-1.00); Monocytes % (A) 8.2 %; NRBC Per 100 WBC 0 X 10*3/uL (0.00-0.01); Neutrophils # (A) 4.25 X 10*3/uL (1.80-7.70); Neutrophils % (A) 57.3 %; Platelet Count 274 X 10*3/uL (140-440); RBC 4.09 X 10*6/uL (4.10-5.20); RDW 12.1 % (11.5-14.5); WBC 7.42 X 10*3/uL (4.50-10.00)
[2024-05-22 15:25] LABS: ALT 61 U/L (8-44); AST 47 U/L (13-35); Albumin 4.6 g/dL (3.8-4.9); Albumin/Globulin Ratio 1.92 Ratio (1.60-3.17); Alkaline Phosphatase 56 U/L (41-126); Calcium 9.9 mg/dL (8.7-10.3); Chloride 102 mmol/L (96-109); Globulin 2.4 g/dL (1.6-3.3); Glucose 94 mg/dL (70-110); Potassium 4.7 mmol/L (3.5-5.5); Sodium 138 mmol/L (135-145); Total Bilirubin 0.4 mg/dL (0.3-1.2)
== END | disposition home or self-care (01) ==
LOC: LABWHC1 11:40
PROVIDERS: ATTEND Internal Medicine Gastroenterology
DX: R74.01 Elevation of levels of liver transaminase levels (principal)
CPT/HCPCS: 36415; 80053; 85025

== ENCOUNTER → 2024-07-07 | Outpatient (CLI) | payer MEDICARE, BC ==
--- NOTE | 2024-07-10 12:31 | MM ---
Reason for Exam: Screening (asymptomatic). Last screening mammogram was performed 12 month(s) ago. Patient History: Menarche at age 11. Patient has no children. Postmenopausal. Patient used Hormonal Contraceptives for 18 years. Cyst Aspiration on the Left side. Cyst Aspiration on the Left side. Risk Values: Nguyen 5 year model risk: 1.9%. NCI Lifetime model risk: 5.6%. Prior Study Comparison: 06/18/2021 Bilateral Screening Mammogram, [facility]. 06/25/2022 Bilateral MG 3D screening mammo w/cad, [facility]. 07/06/2023 Bilateral MG 3D screening mammo w/cad, [facility]. Tissue Density: The breasts are heterogeneously dense, which may obscure small masses. Findings: Analyzed By CAD. Areas of asymmetric density are unchanged. There is no suspicious group of microcalcifications or new suspicious mass in either breast. Overall Assessment: Benign, BI-RAD 2 Management: Screening Mammogram of both breasts in 1 year. Patient should continue monthly self-breast exams. A clinical breast exam by your physician is recommended on an annual basis. This exam should not preclude additional follow-up of suspicious palpable abnormalities. Note on Nguyen scores and lifetime risk: 1. A Nguyen score greater than 3% is considered moderate risk. If this is the case, consider specialist referral to assess eligibility for a risk reducing agent. 2. If overall lifetime risk for the development of breast cancer is 20% or higher, the patient may qualify for future screening with alternating mammogram and breast MRI. [facility], , 07/10/2024 12:28 PM. Electronically signed and approved by: Landen Trevino M.D. Radiologist
== END | disposition home or self-care (01) ==
LOC: RADMAMWWP 14:11
PROVIDERS: ATTEND Family Medicine
DX: Z12.31 Encounter for screening mammogram for malignant neoplasm of breast (principal); Z78.0 Asymptomatic menopausal state; R92.333 Mammographic heterogeneous density, bilateral breasts
CPT/HCPCS: 77063; 77067

== ENCOUNTER → 2024-07-25 | Outpatient (CLI) | payer MEDICARE, BC ==
[2024-07-25 16:46] LABS: ALT 34 U/L (8-44); AST 37 U/L (13-35); Chol/HDL Ratio 2.37 Ratio; LDL Cholesterol,Calculated 75.4 mg/dL (0.0-131.0); VLDL Calculation 13.56 mg/dL (5.00-40.00)
== END | disposition home or self-care (01) ==
LOC: LABWHC1 09:47
PROVIDERS: ATTEND Internal Medicine Interventional Cardiology
DX: E78.2 Mixed hyperlipidemia (principal)
CPT/HCPCS: 36415; 80061; 84450; 84460

== ENCOUNTER → 2024-11-25 | Outpatient (CLI) | payer MEDICARE, BC ==
[2024-11-26 06:04] LABS: Basophils # (A) 0.06 X 10*3/uL (0.00-0.10); Basophils % (A) 0.9 %; Eosinophils # (A) 0.22 X 10*3/uL (0.04-0.35); Eosinophils % (A) 3.2 %; HCT 39.7 % (37.2-46.3); HGB 12.6 g/dL (12.0-15.0); Lymphocytes # (A) 2.55 X 10*3/uL (0.90-5.00); Lymphocytes % (A) 37.4 %; MCH 31.7 pg (27.0-32.0); MCHC 31.7 g/dL (32.0-37.0); Mean Platelet Volume 11.7 FL (9.5-12.2); Monocytes # (A) 0.68 X 10*3/uL (0.20-1.00); NRBC Per 100 WBC 0 X 10*3/uL (0.00-0.01); Neutrophils # (A) 3.29 X 10*3/uL (1.80-7.70); Neutrophils % (A) 48.4 %; Platelet Count 247 X 10*3/uL (140-440); RBC 3.97 X 10*6/uL (4.10-5.20); RDW 11.9 % (11.5-14.5); WBC 6.81 X 10*3/uL (4.50-10.00)
[2024-11-26 07:03] LABS: ALT 38 U/L (8-44); AST 42 U/L (13-35); Albumin 4.7 g/dL (3.8-4.9); Albumin/Globulin Ratio 1.96 Ratio (1.60-3.17); Alkaline Phosphatase 51 U/L (41-126); BUN/Creat Ratio 16.56 Ratio (12.00-20.00); Blood Urea Nitrogen 14.9 mg/dL (9.0-27.0); Calcium 9.9 mg/dL (8.7-10.3); Carbon Dioxide 25.4 mmol/L (21.6-31.8); Chloride 103 mmol/L (96-109); Globulin 2.4 g/dL (1.6-3.3); Glucose 95 mg/dL (70-110); Potassium 4.9 mmol/L (3.5-5.5); Sodium 139 mmol/L (135-145); Total Bilirubin 0.4 mg/dL (0.3-1.2); Total Protein 7.1 g/dL (6.2-8.2)
== END | disposition home or self-care (01) ==
LOC: LABWHC1 10:44
PROVIDERS: ATTEND Internal Medicine Gastroenterology
DX: R74.01 Elevation of levels of liver transaminase levels (principal)
CPT/HCPCS: 36415; 80053; 85025

== ENCOUNTER → 2025-01-26 | Outpatient (CLI) | payer MEDICARE, BC ==
[2025-01-26 15:50] LABS: Basophils # (A) 0.04 X 10*3/uL (0.00-0.10); Basophils % (A) 0.7 %; Eosinophils # (A) 0.35 X 10*3/uL (0.04-0.35); Eosinophils % (A) 6.4 %; HCT 41.7 % (37.2-46.3); Lymphocytes # (A) 1.93 X 10*3/uL (0.90-5.00); Lymphocytes % (A) 35.2 %; MCH 31.8 pg (27.0-32.0); MCHC 31.2 g/dL (32.0-37.0); Monocytes # (A) 0.58 X 10*3/uL (0.20-1.00); Monocytes % (A) 10.6 %; NRBC Per 100 WBC 0 X 10*3/uL (0.00-0.01); Neutrophils # (A) 2.58 X 10*3/uL (1.80-7.70); Neutrophils % (A) 46.9 %; Platelet Count 233 X 10*3/uL (140-440); RBC 4.09 X 10*6/uL (4.10-5.20); RDW 12.4 % (11.5-14.5); WBC 5.49 X 10*3/uL (4.50-10.00)
[2025-01-26 16:09] LABS: ALT 34 U/L (8-44); AST 39 U/L (13-35); Albumin 4.4 g/dL (3.8-4.9); Albumin/Globulin Ratio 1.76 Ratio (1.60-3.17); Alkaline Phosphatase 50 U/L (41-126); BUN/Creat Ratio 18.29 Ratio (12.00-20.00); Blood Urea Nitrogen 12.8 mg/dL (9.0-27.0); Calcium 9.9 mg/dL (8.7-10.3); Carbon Dioxide 24.9 mmol/L (21.6-31.8); Chloride 103 mmol/L (96-109); Chol/HDL Ratio 2.18 Ratio; Globulin 2.5 g/dL (1.6-3.3); Glucose 92 mg/dL (70-110); LDL Cholesterol,Calculated 62.2 mg/dL (0.0-131.0); Potassium 4.7 mmol/L (3.5-5.5); Sodium 140 mmol/L (135-145); Total Bilirubin 0.4 mg/dL (0.3-1.2); Total Protein 6.9 g/dL (6.2-8.2); VLDL Calculation 16.38 mg/dL (5.00-40.00)
== END | disposition home or self-care (01) ==
LOC: LABWHC1 10:37
PROVIDERS: ATTEND Nurse Practitioner Family
DX: I10 Essential (primary) hypertension (principal); E78.2 Mixed hyperlipidemia; R74.01 Elevation of levels of liver transaminase levels
CPT/HCPCS: 36415; 80053; 80061; 84443; 84481; 85025